=== PATIENT | female | born 1965 | race American Indian/Alaskan Native ===

== ENCOUNTER 2020-12-06 12:53 | Inpatient (IN) | payer OTHER, SELFPAY ==
[2020-12-06] MEDS ORDERED: cefTRIAXone/NS 2 GM/100 ML 2 GM/100 ML BAG IV ONE (13:09)
[2020-12-06] MEDS ORDERED: AZITHROMYCIN/NS 500 MG/250 ML 500 MG/250 ML BAG IV ONE (13:09)
[2020-12-06] MEDS ORDERED: dexAMETHasone 20 MG/5 ML VIAL IV ONE (13:10)
--- NOTE | 2020-12-06 13:53 | XRay Report ---
XR chest routine 2V INDICATION / CLINICAL INFORMATION: fever hypoxia COVID+ COMPARISON: None available. FINDINGS: SUPPORT DEVICES: None. HEART / MEDIASTINUM: No significant abnormality. LUNGS / PLEURA: Patchy bilateral airspace disease in a peripheral predilection. Costophrenic sulci ar e sharp. No pneumothorax. ADDITIONAL FINDINGS: No significant additional findings. IMPRESSION: 1. Bilateral airspace disease concerning for infection. Covid is a consideration. Signer Name: Kali Harrison MD Signed: 12/06/2020 1:49 PM Workstation Name: [id number]
[2020-12-06 14:48] LABS: Basophils % (Auto) 0.1 % (0.0-1.8); Hemoglobin 14.3 gm/dl (10.1-14.3); Lymphocytes # (Auto) 0.5 K/mm3 (1.2-5.4); Lymphocytes % (Auto) 14.6 % (13.4-35.0); Mean Corpuscular HGB Conc 35 % (30-34); Mean Corpuscular Volume 91 fl (79-97); Monocytes # (Auto) 0.5 K/mm3 (0.0-0.8); Monocytes % (Auto) 13.2 % (0.0-7.3); Platelet Count 188 K/mm3 (140-440); Red Blood Count 4.49 M/mm3 (3.65-5.03)
[2020-12-06 15:04] LABS: Alanine Aminotransferase 19 units/L (7-56); Albumin 4.4 g/dL (3.9-5); Blood Urea Nitrogen 11 mg/dL (7-17); Calcium 8.8 mg/dL (8.4-10.2); Hemolysis Index 5
[2020-12-06 15:11] LABS: C-Reactive Protein 6.2 mg/dL (0.00-1.30)
[2020-12-06 15:17] LABS: BUN/Creatinine Ratio 22
--- NOTE | 2020-12-06 15:25 | Emergency Department Report ---
ED Shortness of Breath HPI - General Chief Complaint: Dyspnea/Respdistress Stated Complaint: JEAN Time Seen by Provider: 12/06/20 13:01 Source: patient Mode of arrival: Ambulatory Limitations: No Limitations - History of Present Illness Initial Comments: CC: trouble breathing HPI: This is a 55 yo female with hx of HTN, prediabetes, HLD who presents with trouble breathing, cough, fever, chills, diarrhea, loss of taste/smell for 7 days. REceived one dose of COVID 19 vaccine . +COVID test recently. Worsening shortness of breath prompted her to come to the ED. She works at the [employer]. Complaint: shortness of breath, cough -: Gradual, week(s) (1 week) Severity: severe Consistency: constant Improves With: oxygen Worsens With: exertion Context: other (recent + COVID test) Associated Symptoms: fever, cough - Related Data Allergies Allergy/AdvReac Type Severity Reaction Status Date / Time No Known Allergies Allergy Unverified 12/06/20 12:56 ED Review of Systems ROS: Stated complaint: JEAN Other details as noted in HPI Comment: All other systems reviewed and negative Constitutional: chills, fever, malaise Respiratory: cough, shortness of breath Cardiovascular: denies: chest pain Gastrointestinal: diarrhea ED Past Medical Hx - Past Medical History Previous Medical History?: Yes Hx Hypertension: Yes Hx Diabetes: Yes (prediabetes) Additional medical history: Hyperlipidemia - Surgical History Past Surgical History?: No - Family History Family history: diabetes, hypertension - Social History Smoking Status: Never Smoker Substance Use Type: None ED Physical Exam - General Limitations: No Limitations General appearance: alert, anxious, in distress (Moderate work of breathing speaking full sentences) - Head Head exam: Present: atraumatic, normocephalic - Eye Eye exam: Present: normal appearance - ENT ENT exam: Present: mucous membranes moist - Neck Neck exam: Present: normal inspection, full ROM - Respiratory Respiratory exam: Present: respiratory distress, decreased breath sounds. Absent: wheezes, rales, rhonchi, accessory muscle use - Cardiovascular Cardiovascular Exam: Present: regular rate, normal rhythm, normal heart sounds. Absent: systolic murmur, diastolic murmur, rubs, gallop - GI/Abdominal GI/Abdominal exam: Present: soft, normal bowel sounds. Absent: distended, tenderness, guarding, rebound - Extremities Exam Extremities exam: Present: normal inspection - Neurological Exam Neurological exam: Present: alert, oriented X3 - Psychiatric Psychiatric exam: Present: normal affect, normal mood - Skin Skin exam: Present: warm, dry, intact, normal color. Absent: rash ED Course Vital Signs 12/06/20 12/06/20 12:58 15:24 Temperature 98.5 F Pulse Rate 96 H Respiratory 24 Rate Blood Pressure 139/84 [Right] O2 Sat by Pulse 84 89 Oximetry ED Medical Decision Making - Lab Data Result diagrams: 12/06/20 14:18 12/06/20 14:18 - Radiology Data Radiology results: report reviewed Patient Name: ILEANA SCHROEDER Gender: Female Date of : 1965 Referring Provider: TRISTA FERRER Organization: [facility] Accession Number: [id number] Requested Date: December 06, 2020 13:09 Report Status: Final Requested Procedure: 1 Procedure Description: XR chest routine 2V Modality: XR Findings Reporting MD: Kali Harrison Dictation Time: December 06, 2020 12:49 Radio Installer Automobile: Not available Food Safety Officer Date: XR chest routine 2V INDICATION / CLINICAL INFORMATION: fever hypoxia COVID+ COMPARISON: None available. FINDINGS: SUPPORT DEVICES: None. HEART / MEDIASTINUM: No significant abnormality. LUNGS / PLEURA: Patchy bilateral airspace disease in a peripheral predilection. Costophrenic sulci are sharp. No pneumothorax. ADDITIONAL FINDINGS: No significant additional findings. IMPRESSION: 1. Bilateral airspace disease concerning for infection. Covid is a consideration. Signer Name: Kali Harrison MD Signed: 12/06/2020 12:49 PM Workstation Name: [id number] - Medical Decision Making Acute respiratory failure due to COVID-19, multifocal pneumonia: IV azithromycin IV ceftriaxone initiated emergency department for presumed secondary or primary bacterial infection. IV dexamethasone mention emergency department for s upportive care Covid markers are elevated including ferritin LDH CRP D-dimer chemistry notable for mild hypokalemia Patient mated to the hospital service on nasal cannula Critical care attestation.: If time is entered above; I have spent that time in minutes in the direct care of this critically ill patient, excluding procedure time. ED Disposition Clinical Impression: Acute respiratory failure with hypoxia, Acute respiratory failure due to COVID- 19, Multifocal pneumonia Disposition: 09 ADMITTED INPATIENT Is pt being admited?: Yes Does the pt Need Aspirin: No Condition: Fair Instructions: Bacterial Pneumonia (ED)
--- NOTE | 2020-12-06 17:11 | History and Physical Report ---
History of Present Illness Date of examination: 12/06/20 Date of admission: 12/06/20 15:25 Chief complaint: Fever cough and chills for 7 days History of present illness: 55-year-old female with history of hypertension, borderline diabetes and hyperlipidemia comes in with fever chills and cough for 1 week and difficulty breathing. Patient received 1 dose of Covid vaccine on November 27. Worsening shortness of breath over the last 1 week. [place] Exposure to Covid virus present. Also patient has loss of taste and smell. For the last 7 days. - Past Medical History Previous Medical History?: Yes --Hypertension: Yes --Diabetes: Yes (prediabetes) --Additional medical history: Hyperlipidemia - Surgical History Past Surgical History?: No - Family History Family history: diabetes, hypertension - Social History Smoking Status: Never Smoker Substance Use Type: None Review of Systems ROS: Constitutional fever cough shortness of breath and loss of taste and smell HEENT no sore throat no post nasal drip no diplopia Neck no neck stiffness no lymph gland enlargement Chest and lungs shortness of breath and cough present CVS no chest pain no diaphoresis no palpitations GI no nausea no vomiting no diarrhea Genitourinary system no dysuria no flank pain Musculoskeletal system no muscle pains no joint pains ORGAN TUNER no syncope no seizures Skin no rash no itching Psychiatric no depression no homicidal or suicidal tendencies Hematologic no lymphedema or bruising Endocrine no polydipsia no polyuria no cold intolerance no heat intolerance Medications and Allergies Allergies Allergy/AdvReac Type Severity Reaction Status Date / Time No Known Allergies Allergy Unverified 12/06/20 12:56 Exam - Constitutional Vitals: Temp Pulse Resp BP Pulse Ox 98.5 F 96 H 24 139/84 89 12/06/20 12:58 12/06/20 12:58 12/06/20 12:58 12/06/20 12:58 12/06/20 15:24 General appearance: Present: mild distress, well-nourished - EENT Eyes: Present: PERRL ENT: hearing intact, clear oral mucosa - Neck Neck: Present: supple, normal ROM - Respiratory Respiratory effort: normal Respiratory: bilateral: CTA, rhonchi (Scattered) - Cardiovascular Heart rate: 78 Rhythm: regular Heart Sounds: Present: S1 & S2. Absent: rub, click - Extremities Extremities: pulses symmetrical, No edema Peripheral Pulses: within normal limits - Abdominal General gastrointestinal: Present: soft, non-tender, non-distended, normal bowel sounds Female genitourinary: Present: normal - Integumentary Integumentary: Present: clear, warm, dry - Musculoskeletal Musculoskeletal: gait normal, strength equal bilaterally - Psychiatric Psychiatric: appropriate mood/affect, intact judgment & insight - Neurologic Neurologic: CNII-XII intact, moves all extremities HEART Score - HEART Score Troponin: Troponin T < 0.010 ng/mL (0.00-0.029) 12/06/20 14:18 Results - Labs CBC & Chem 7: 12/07/20 05:36 12/06/20 14:18 Labs: Laboratory Last Values WBC 3.6 K/mm3 (4.5-11.0) L 12/06/20 14:18 RBC 4.49 M/mm3 (3.65-5.03) 12/06/20 14:18 Hgb 14.3 gm/dl (10.1-14.3) 12/06/20 14:18 Hct 41.0 % (30.3-42.9) 12/06/20 14:18 MCV 91 fl (79-97) 12/06/20 14:18 MCH 32 pg (28-32) 12/06/20 14:18 MCHC 35 % (30-34) H 12/06/20 14:18 RDW 13.0 % (13.2-15.2) L 12/06/20 14:18 Plt Count 188 K/mm3 (140-440) 12/06/20 14:18 Lymph % (Auto) 14.6 % (13.4-35.0) 12/06/20 14:18 Hendry % (Auto) 13.2 % (0.0-7.3) H 12/06/20 14:18 Eos % (Auto) 0.0 % (0.0-4.3) 12/06/20 14:18 Baso % (Auto) 0.1 % (0.0-1.8) 12/06/20 14:18 Lymph # (Auto) 0.5 K/mm3 (1.2-5.4) L 12/06/20 14:18 Hendry # (Auto) 0.5 K/mm3 (0.0-0.8) 12/06/20 14:18 Eos # (Auto) 0.0 K/mm3 (0.0-0.4) 12/06/20 14:18 Baso # (Auto) 0.0 K/mm3 (0.0-0.1) 12/06/20 14:18 Seg Neutrophils % 72.1 % (40.0-70.0) H 12/06/20 14:18 Seg Neutrophils # 2.6 K/mm3 (1.8-7.7) 12/06/20 14:18 D-Dimer 343.36 ng/mlDDU (0-234) H 12/06/20 14:18 Sodium 134 mmol/L (137-145) L 12/06/20 14:18 Potassium 3.1 mmol/L (3.6-5.0) L 12/06/20 14:18 Chloride 92.6 mmol/L (98-107) L 12/06/20 14:18 Carbon Dioxide 24 mmol/L (22-30) 12/06/20 14:18 Anion Gap 21 mmol/L 12/06/20 14:18 BUN 11 mg/dL (7-17) 12/06/20 14:18 Creatinine 0.5 mg/dL (0.6-1.2) L 12/06/20 14:18 Estimated GFR > 60 ml/min 12/06/20 14:18 BUN/Creatinine Ratio 22 % 12/06/20 14:18 Glucose 120 mg/dL (65-100) H 12/06/20 14:18 Glucose 122 mg/dL (65-100) H 12/06/20 14:18 Lactic Acid 1.30 mmol/L (0.7-2.0) 12/06/20 16:14 Calcium 8.8 mg/dL (8.4-10.2) 12/06/20 14:18 Ferritin 767.8 ng/mL (10.0-200.0) H 12/06/20 14:18 Total Bilirubin 0.50 mg/dL (0.1-1.2) 12/06/20 14:18 AST 31 units/L (5-40) 12/06/20 14:18 ALT 19 units/L (7-56) 12/06/20 14:18 Alkaline Phosphatase 99 units/L (35-129) 12/06/20 14:18 Lactate Dehydrogenase 373 units/L (91-180) H 12/06/20 14:18 Troponin T < 0.010 ng/mL (0.00-0.029) 12/06/20 14:18 C-Reactive Protein 6.20 mg/dL (0.00-1.30) H 12/06/20 14:18 Total Protein 7.7 g/dL (6.3-8.2) 12/06/20 14:18 Albumin 4.4 g/dL (3.9-5) 12/06/20 14:18 Albumin/Globulin Ratio 1.3 % 12/06/20 14:18 Procalcitonin < 0.05 ng/mL (<0.15) 12/06/20 14:18 Short CBC 12/06/20 12/07/20 Range/Units 14:18 05:36 WBC 3.6 L 2.4 L (4.5-11.0) K/mm3 Hgb 14.3 15.0 H (10.1-14.3) gm/dl Hct 41.0 42.3 (30.3-42.9) % Plt Count 188 219 (140-440) K/mm3 BMP 12/06/20 12/06/20 14:18 14:18 Sodium 134 L Potassium 3.1 L Chloride 92.6 L Carbon Dioxide 24 BUN 11 Creatinine 0.5 L Glucose 122 H 120 H Calcium 8.8 Cardiac Enzymes 12/06/20 Range/Units 14:18 Troponin T < 0.010 (0.00-0.029) ng/mL Liver Function 12/06/20 Range/Units 14:18 Total Bilirubin 0.50 (0.1-1.2) mg/dL AST 31 (5-40) units/L ALT 19 (7-56) units/L Alkaline Phosphatase 99 (35-129) units/L Albumin 4.4 (3.9-5) g/dL Microbiology: Microbiology 12/06/20 14:18 Peripheral/Venous Blood Culture - Preliminary Culture in Progress 12/06/20 14:18 Peripheral/Venous Blood Culture - Preliminary Culture in Progress - Imaging and Cardiology Chest x-ray: report reviewed Imaging and Cardiology: Chest x-ray Bilateral airspace disease concerning for infection Covid is a consideration Assessment and Plan Advance Directives: Yes (Full code) VTE prophylaxis?: Chemical Plan of care discussed with patient/family: Yes - Patient Problems (1) Acute respiratory failure with hypoxia Current Visit: Yes Status: Acute Plan to address problem: Continue oxygen supplementation and keep oxygen saturation levels above 92 Possible Covid pneumonia IV Decadron initiated Respiratory assessment and treatment ID consult (2) SIRS (systemic inflammatory response syndrome) Current Visit: Yes Status: Acute Plan to address problem: All inflammatory markers are elevated including D-dimer which is 343 and CRP is 6.2 and ferritin is 767 consistent with systemic inflammatory response syndrome. (3) Multifocal pneumonia Current Visit: Yes Status: Acute Plan to address problem: Patient initiated on IV antibiotics including ceftriaxone and Zithromax for possible community-acquired pneumonia Procalcitonin is normal We will defer to ID regarding discontinuing antibiotics (4) Pneumonia due to COVID-19 virus Current Visit: Yes Status: Acute Plan to address problem: Patient initiated on IV Decadron Will defer to ID regarding remdesivir Coronavirus PCR pending (5) Hypokalemia Current Visit: Yes Status: Acute Plan to address problem: Supplemented (6) Hyponatremia Current Visit: Yes Status: Acute Plan to address problem: IV fluids in the form of normal saline for 12 hours Recheck sodium level (7) Borderline diabetes Current Visit: Yes Status: Chronic Plan to address problem: Check hemoglobin A1c and coverage Initiate Metformin if necessary (8) Hypertension Current Visit: Yes Status: Chronic Qualifiers: Hypertension type: primary hypertension Qualified Code(s): I10 - Essential (primary) hypertension Plan to address problem: Continue antihypertensives and adjust medications (9) DVT prophylaxis Current Visit: Yes Status: Acute Plan to address problem: On anticoagulation and GI prophylaxis
[2020-12-06] MEDS ORDERED: ACETAMINOPHEN 325 MG TAB PO PRN (17:12)
[2020-12-06] MEDS ORDERED: ONDANSETRON 4 MG/2 ML INJ IV PRN (17:12)
[2020-12-06] MEDS ORDERED: METOCLOPRAMIDE 10 MG/2 ML INJ IV PRN (17:13)
[2020-12-06] MEDS ORDERED: HYDROmorphone 1 MG/1 ML INJ IV PRN (17:13)
[2020-12-06] MEDS ORDERED: oxyCODONE /ACETAMINOPHEN 5-325MG TAB PO PRN (17:13)
[2020-12-06] MEDS ORDERED: SODIUM CHLORIDE 0.9% 1000 ML 1,000 ML IV SCH (17:15)
[2020-12-06] MEDS: FAMOTIDINE 20 MG TAB PO SCH (23:15)
[2020-12-07 06:17] LABS: Hematocrit 42.3 % (30.3-42.9); Mean Corpuscular HGB Conc 35 % (30-34); Mean Corpuscular Volume 91 fl (79-97); Platelet Count 219 K/mm3 (140-440); Red Blood Count 4.65 M/mm3 (3.65-5.03)
[2020-12-07 06:55] LABS: Alanine Aminotransferase 19 units/L (7-56); Albumin 4.3 g/dL (3.9-5); Blood Urea Nitrogen 13 mg/dL (7-17); Calcium 9.6 mg/dL (8.4-10.2); Hemolysis Index 0
[2020-12-07 06:56] LABS: BUN/Creatinine Ratio 26
[2020-12-07] MEDS ORDERED: SODIUM PHOSPHATE 30 MMOL in SODIUM CHLORIDE 0.9% 500 ML 250 ML IV PRN (07:16)
[2020-12-07] MEDS ORDERED: MAGNESIUM SULFATE 2 GM/50 ML BAG IV PRN (07:16)
--- NOTE | 2020-12-07 07:25 | Progress Note ---
Assessment and Plan Assessment and plan: (1) Acute respiratory failure with hypoxia Current Visit: Yes Status: Acute Plan to address problem: Continue oxygen supplementation and keep oxygen saturation levels above 92 Possible Covid pneumonia IV Decadron initiated Respiratory assessment and treatment ID consult (2) SIRS (systemic inflammatory response syndrome) Current Visit: Yes Status: Acute Plan to address problem: All inflammatory markers are elevated including D-dimer which is 343 and CRP is 6.2 and ferritin is 767 consistent with systemic inflammatory response syndrome. (3) Multifocal pneumonia Current Visit: Yes Status: Acute Plan to address problem: Patient initiated on IV antibiotics including ceftriaxone and Zithromax for possible community-acquired pneumonia Procalcitonin is normal We will defer to ID regarding discontinuing antibiotics (4) Pneumonia due to COVID-19 virus Current Visit: Yes Status: Acute Plan to address problem: Patient initiated on IV Decadron Will defer to ID regarding remdesivir Coronavirus PCR pending (5) Hypokalemia Current Visit: Yes Status: Acute Plan to address problem: Supplemented (6) Hyponatremia Current Visit: Yes Status: Acute Plan to address problem: IV fluids in the form of normal saline for 12 hours Recheck sodium level (7) 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 Patient is on dexamethasone, will add remdesivir once we get the Covid test result positive. Procalcitonin level is normal and I discontinued antibiotics. Hypokalemia repleted according to electrolyte replacement protocol. Will monitor blood pressure. History Interval history: Patient was seen and evaluated this morning Patient was on 3 L of oxygen Patient states she is feeling better today Hospitalist Physical - Physical exam Narrative exam: Not in cardiopulmonary distress. The patient is obese. Vital signs as documented. Head exam is unremarkable. No scleral icterus . Neck is without jugular venous distension, thyromegaly, or carotid bruits. Lungs are clear to auscultation. Cardiac exam reveals regular rate and Rhythm. Abdominal exam reveals normal bowel sounds, nontender, no organomegaly. Extremities are nonedematous and both femoral and pedal pulses are normal. SCHEDULING MANAGER: Alert and oriented 3. No focal weakness. - Constitutional Vitals: Temp Pulse Resp BP Pulse Ox 98.6 F 83 16 150/97 89 12/07/20 03:44 12/07/20 03:44 12/07/20 03:44 12/07/20 03:44 12/07/20 03:44 General appearance: Present: mild distress, well-nourished HEART Score - HEART Score Troponin: Troponin T < 0.010 ng/mL (0.00-0.029) 12/06/20 14:18 Results - Labs CBC & Chem 7: 12/07/20 05:36 12/07/20 05:36 Labs: Laboratory Last Values WBC 2.4 K/mm3 (4.5-11.0) L 12/07/20 05:36 RBC 4.65 M/mm3 (3.65-5.03) 12/07/20 05:36 Hgb 15.0 gm/dl (10.1-14.3) H 12/07/20 05:36 Hct 42.3 % (30.3-42.9) 12/07/20 05:36 MCV 91 fl (79-97) 12/07/20 05:36 MCH 32 pg (28-32) 12/07/20 05:36 MCHC 35 % (30-34) H 12/07/20 05:36 RDW 13.0 % (13.2-15.2) L 12/07/20 05:36 Plt Count 219 K/mm3 (140-440) 12/07/20 05:36 Lymph % (Auto) 14.6 % (13.4-35.0) 12/06/20 14:18 Bonner % (Auto) Taxi Driver Supervisor 12/07/20 05:36 Eos % (Auto) 0.0 % (0.0-4.3) 12/06/20 14:18 Baso % (Auto) 0.1 % (0.0-1.8) 12/06/20 14:18 Lymph # (Auto) 0.5 K/mm3 (1.2-5.4) L 12/06/20 14:18 Bonner # (Auto) 0.5 K/mm3 (0.0-0.8) 12/06/20 14:18 Eos # (Auto) 0.0 K/mm3 (0.0-0.4) 12/06/20 14:18 Baso # (Auto) 0.0 K/mm3 (0.0-0.1) 12/06/20 14:18 Seg Neutrophils % 72.1 % (40.0-70.0) H 12/06/20 14:18 Seg Neutrophils # 2.6 K/mm3 (1.8-7.7) 12/06/20 14:18 D-Dimer 343.36 ng/mlDDU (0-234) H 12/06/20 14:18 Sodium 137 mmol/L (137-145) 12/07/20 05:36 Potassium 3.0 mmol/L (3.6-5.0) L 12/07/20 05:36 Chloride 93.2 mmol/L (98-107) L 12/07/20 05:36 Carbon Dioxide 31 mmol/L (22-30) H D 12/07/20 05:36 Anion Gap 16 mmol/L 12/07/20 05:36 BUN 13 mg/dL (7-17) 12/07/20 05:36 Creatinine 0.5 mg/dL (0.6-1.2) L 12/07/20 05:36 Estimated GFR > 60 ml/min 12/07/20 05:36 BUN/Creatinine Ratio 26 % 12/07/20 05:36 Glucose 130 mg/dL (65-100) H 12/07/20 05:36 Hemoglobin A1c 6.1 % (4-6) H 12/07/20 05:36 Lactic Acid 1.30 mmol/L (0.7-2.0) 12/06/20 16:14 Calcium 9.6 mg/dL (8.4-10.2) 12/07/20 05:36 Ferritin 767.8 ng/mL (10.0-200.0) H 12/06/20 14:18 Total Bilirubin 0.50 mg/dL (0.1-1.2) 12/07/20 05:36 AST 33 units/L (5-40) 12/07/20 05:36 ALT 19 units/L (7-56) 12/07/20 05:36 Alkaline Phosphatase 102 units/L (35-129) 12/07/20 05:36 Lactate Dehydrogenase 373 units/L (91-180) H 12/06/20 14:18 Troponin T < 0.010 ng/mL (0.00-0.029) 12/06/20 14:18 C-Reactive Protein 6.20 mg/dL (0.00-1.30) H 12/06/20 14:18 Total Protein 8.5 g/dL (6.3-8.2) H 12/07/20 05:36 Albumin 4.3 g/dL (3.9-5) 12/07/20 05:36 Albumin/Globulin Ratio 1.0 % 12/07/20 05:36 Procalcitonin < 0.05 ng/mL (<0.15) 12/06/20 14:18 Microbiology: Microbiology 12/06/20 14:18 Peripheral/Venous Blood Culture - Preliminary Culture in Progress 12/06/20 14:18 Peripheral/Venous Blood Culture - Preliminary Culture in Progress Wilkins/IV: Voiding Method Toilet Active Medications - Current Medications Current Medications: Generic Name Dose Route Start Last Admin Trade Name Freq PRN Reason Stop Dose Admin Acetaminophen 650 mg 12/06/20 17:12 Acetaminophen 325 Mg Tab PO Q4H PRN Pain MILD(1-3)/Fever >100.5/[place] Dexamethasone 8 mg 12/07/20 10:00 Dexamethasone 4 Mg/Ml Vial IV Q24H BRONWYN Enoxaparin Sodium 40 mg 12/06/20 18:00 Enoxaparin 40 Mg/0.4 Ml Inj SUB-Q QDAY BRONWYN Famotidine 20 mg 12/06/20 22:00 12/06/20 23:15 Famotidine 20 Mg Tab PO 20 mg BID BRONWYN Administration Hydromorphone HCl 0.5 mg 12/06/20 17:13 Hydromorphone 1 Mg/1 Ml Inj IV Q3H PRN Pain , Severe (7-10) Sodium Chloride 1,000 mls @ 75 mls/hr 12/06/20 17:15 Nacl 0.9% 1000 Ml IV 12/07/20 08:00 DIRECT BRONWYN Magnesium Sulfate 2 gm in 50 mls @ 25 mls/hr 12/07/20 07:16 Magnesium Sulfate 2gm/50ml IV Q2H PRN Magnesium level 1.5-1.7 mg/dL Sodium Phosphate 30 mmol/ 260 mls @ 40 mls/hr 12/07/20 07:16 Sodium Chloride IV Q6H PRN Phosphorous level < 1.2 mg/dL Metoclopramide HCl 10 mg 12/06/20 17:13 Metoclopramide 10 Mg/2 Ml Inj IV Q6H PRN Nausea And Vomiting Ondansetron HCl 4 mg 12/06/20 17:12 Ondansetron 4 Mg/2 Ml Inj IV Q8H PRN Nausea And Vomiting Oxycodone/Acetaminophen 1 tab 12/06/20 17:13 Oxycodone /Acetaminophen 5-325mg Tab PO Q6H PRN Pain, Moderate (4-6) Potassium Chloride 20 meq 12/07/20 07:16 Potassium Chloride Er 20 Meq Tab PO Q2H PRN Potassium 3-3.5 mEq/L Sodium Chloride 10 ml 12/06/20 22:00 12/06/20 22:54 Sodium Chloride 0.9% 10 Ml Flush Syringe IV 10 ml BID BRONWYN Administration Sodium Chloride 10 ml 12/06/20 17:12 Sodium Chloride 0.9% 10 Ml Flush Syringe IV PRN PRN LINE FLUSH
[2020-12-07 09:59] LABS: Total Cells Counted 100
[2020-12-07] MEDS ORDERED: cefTRIAXone/NS 2 GM/100 ML 2 GM/100 ML BAG IV SCH (10:00)
[2020-12-07 10:01] LABS: Anisocytosis 2+; Ovalocytes 1+
[2020-12-07 10:02] LABS: Hypochromasia 2+; Large Platelets Few; Platelet Estimate Cons
[2020-12-07] MEDS: POTASSIUM CHLORIDE ER 20 MEQ TAB PO SCH (10:51)
[2020-12-07] MEDS: dexAMETHasone 4 MG/ML VIAL IV SCH (10:51)
[2020-12-07] MEDS: FAMOTIDINE 20 MG TAB PO SCH ×2 (10:54→21:52)
[2020-12-07] MEDS: ENOXAPARIN 40 MG/0.4 ML INJ SUB-Q SCH (10:55)
[2020-12-07] MEDS: INSULIN LISPRO 100 UNIT/ML SUB-Q SCH ×3 (11:25→23:58)
[2020-12-07] MEDS ORDERED: POTASSIUM CHLORIDE ER 20 MEQ TAB PO PRN (12:00)
--- NOTE | 2020-12-07 13:12 | Consultation ---
History of Present Illness - Reason for Consult Consult date: 12/07/20 COVID PUI Requesting physician: MATTHEW MONTALVO - History of Present Illness The patient is a 55-year-old female with diabetes, hypertension, hyperlipidemia admitted as COVID-19 PUI. Symptomatic for 7 days. Status post 1 dose of COVID- 19 vaccination. Labs revealed leukopenia, D-dimer 343, CRP 6.2, ferritin 767, LDH 373, procalcitonin 0.05 Review of Systems: reviewed in the chart, unable to obtain, minimize risk of transmission Medications and Allergies Allergies Allergy/AdvReac Type Severity Reaction Status Date / Time No Known Allergies Allergy Unverified 12/06/20 12:56 Active Meds: Active Medications Acetaminophen (Acetaminophen 325 Mg Tab) 650 mg PO Q4H PRN PRN Reason: Pain MILD(1-3)/Fever >100.5/[place] Last Admin: 12/07/20 08:31 Dose: 650 mg Documented by: Dexamethasone (Dexamethasone 4 Mg/Ml Vial) 8 mg IV Q24H BRONWYN Stop: 12/15/20 10:01 Last Admin: 12/07/20 10:51 Dose: 8 mg Documented by: Enoxaparin Sodium (Enoxaparin 40 Mg/0.4 Ml Inj) 40 mg SUB-Q QDAY [facility] Last Admin: 12/07/20 10:55 Dose: 40 mg Documented by: Famotidine (Famotidine 20 Mg Tab) 20 mg PO BID BRONWYN Last Admin: 12/07/20 10:54 Dose: 20 mg Documented by: Hydromorphone HCl (Hydromorphone 1 Mg/1 Ml Inj) 0.5 mg IV Q3H PRN PRN Reason: Pain , Severe (7-10) Magnesium Sulfate (Magnesium Sulfate 2gm/50ml) 2 gm in 50 mls @ 25 mls/hr IV Q2H PRN PRN Reason: Magnesium level 1.5-1.7 mg/dL Sodium Phosphate 30 mmol/ (Sodium Chloride) 260 mls @ 40 mls/hr IV Q6H PRN PRN Reason: Phosphorous level < 1.2 mg/dL Insulin Human Lispro (Insulin Lispro 100 Unit/Ml) 0 unit SUB-Q ACHS BRONWYN; P rotocol Metoclopramide HCl (Metoclopramide 10 Mg/2 Ml Inj) 10 mg IV Q6H PRN PRN Reason: Nausea And Vomiting Ondansetron HCl (Ondansetron 4 Mg/2 Ml Inj) 4 mg IV Q8H PRN PRN Reason: Nausea And Vomiting Oxycodone/Acetaminophen (Oxycodone /Acetaminophen 5-325mg Tab) 1 tab PO Q6H PRN PRN Reason: Pain, Moderate (4-6) Potassium Chloride (Potassium Chloride Er 20 Meq Tab) 20 meq PO Q2H PRN PRN Reason: Potassium 3-3.5 mEq/L Sodium Chloride (Sodium Chloride 0.9% 10 Ml Flush Syringe) 10 ml IV BID BRONWYN Last Admin: 12/07/20 10:54 Dose: 10 ml Documented by: Sodium Chloride (Sodium Chloride 0.9% 10 Ml Flush Syringe) 10 ml IV PRN PRN PRN Reason: LINE FLUSH Physical Examination - Physical Exam Narrative exam: Physical Exam (reviewed in chart to minimize risk of transmission) Constitutional: deferred Head, Ears, Nose: deferred Eyes: deferred Neck: deferred Oral: deferred Cardiovascular: deferred Respiratory: deferred GI: deferred Musculoskeletal: deferred Skin: deferred Hem/Lymphatic: deferred Psych: deferred Neurological: deferred - Constitutional Vitals: Vital Signs Temp Pulse Resp BP Pulse Ox 98.6 F 83 16 150/97 93 12/07/20 03:44 12/07/20 03:44 12/07/20 03:44 12/07/20 03:44 12/07/20 10:00 Temperature -Last 24 Hours Temperature 98.6 F Results - Labs CBC & Chem 7: 12/07/20 05:36 12/07/20 05:36 Labs: Abnormal lab results 12/06/20 12/06/20 12/06/20 Range/Units 14:18 14:18 14:18 WBC 3.6 L (4.5-11.0) K/mm3 Hgb (10.1-14.3) gm/dl MCHC 35 H (30-34) % RDW 13.0 L (13.2-15.2) % [place] % (Auto) 13.2 H (0.0-7.3) % Lymph # (Auto) 0.5 L (1.2-5.4) K/mm3 Seg Neutrophils % 72.1 H (40.0-70.0) % Seg Neuts % (Manual) (40.0-70.0) % Monocytes % (Manual) (0.0-7.3) % Seg Neutrophils # Man (1.8-7.7) K/mm3 Lymphocytes # (Manual) (1.2-5.4) K/mm3 D-Dimer 343.36 H (0-234) ng/mlDDU Sodium 134 L (137-145) mmol/L Potassium 3.1 L (3.6-5.0) mmol/L Chloride 92.6 L (98-107) mmol/L Carbon Dioxide (22-30) mmol/L Creatinine 0.5 L (0.6-1.2) mg/dL Glucose 122 H (65-100) mg/dL POC Glucose (70-105) mg/dL Hemoglobin A1c (4-6) % Ferritin (10.0-200.0) ng/mL Lactate Dehydrogenase (91-180) units/L C-Reactive Protein (0.00-1.30) mg/dL Total Protein (6.3-8.2) g/dL 12/06/20 12/06/20 12/07/20 Range/Units 14:18 14:18 05:36 WBC 2.4 L (4.5-11.0) K/mm3 Hgb 15.0 H (10.1-14.3) gm/dl MCHC 35 H (30-34) % RDW 13.0 L (13.2-15.2) % [place]assen % (Auto) (0.0-7.3) % Lymph # (Auto) (1.2-5.4) K/mm3 Seg Neutrophils % (40.0-70.0) % Seg Neuts % (Manual) 72.0 H (40.0-70.0) % Monocytes % (Manual) 12.0 H (0.0-7.3) % Seg Neutrophils # Man 1.7 L (1.8-7.7) K/mm3 Lymphocytes # (Manual) 0.4 L (1.2-5.4) K/mm3 D-Dimer (0-234) ng/mlDDU Sodium (137-145) mmol/L Potassium (3.6-5.0) mmol/L Chloride (98-107) mmol/L Carbon Dioxide (22-30) mmol/L Creatinine (0.6-1.2) mg/dL Glucose 120 H (65-100) mg/dL POC Glucose (70-105) mg/dL Hemoglobin A1c (4-6) % Ferritin 767.8 H (10.0-200.0) ng/mL Lactate Dehydrogenase 373 H (91-180) units/L C-Reactive Protein 6.20 H (0.00-1.30) mg/dL Total Protein (6.3-8.2) g/dL 12/07/20 12/07/20 12/07/20 Range/Units 05:36 05:36 10:48 WBC (4.5-11.0) K/mm3 Hgb (10.1-14.3) gm/dl MCHC (30-34) % RDW (13.2-15.2) % Lassen % (Auto) (0.0-7.3) % Lymph # (Auto) (1.2-5.4) K/mm3 Seg Neutrophils % (40.0-70.0) % Seg Neuts % (Manual) (40.0-70.0) % Monocytes % (Manual) (0.0-7.3) % Seg Neutrophils # Man (1.8-7.7) K/mm3 Lymphocytes # (Manual) (1.2-5.4) K/mm3 D-Dimer (0-234) ng/mlDDU Sodium (137-145) mmol/L Potassium 3.0 L (3.6-5.0) mmol/L Chloride 93.2 L (98-107) mmol/L Carbon Dioxide 31 H D (22-30) mmol/L Creatinine 0.5 L (0.6-1.2) mg/dL Glucose 130 H (65-100) mg/dL POC Glucose 137 H (70-105) mg/dL Hemoglobin A1c 6.1 H (4-6) % Ferritin (10.0-200.0) ng/mL Lactate Dehydrogenase (91-180) units/L C-Reactive Protein (0.00-1.30) mg/dL Total Protein 8.5 H (6.3-8.2) g/dL - Imaging and Cardiology Chest x-ray: report reviewed, image reviewed (b/l PNA) Assessment and Plan Cultures: SARS CoV2 PCR: Pending 12/06/2020 blood culture: In process A/P: 55/M with borderline DM, HTN, HLD with: #COVID-19 PUI #Bilateral pneumonia #Acute hypoxic respiratory failure: Hypoxic on room air #Leukopenia: Likely from viral illness Recs: -High suspicion for COVID-19, orders placed for remdesivir, d/c if COVID negat paul -continue IV/PO Dexamethasone x 10 days -prophylactic anticoagulation based on d-dimer per hospital protocol -procalcitonin is low, abx not needed -trend ferritin, d-dimer, CRP every 2-3 days Branden Sorensen MD, FACP [facility] O: [phone] F: [phone]
[2020-12-07] MEDS ORDERED: AZITHROMYCIN/NS 500 MG/250 ML 500 MG/250 ML BAG IV SCH (14:00)
[2020-12-07] MEDS ORDERED: LIP THERAPY VASELINE TP PRN (14:44)
[2020-12-07 16:26] LABS: Alanine Aminotransferase 20 units/L (7-56); Blood Urea Nitrogen 15 mg/dL (7-17); Calcium 9.3 mg/dL (8.4-10.2); Hemolysis Index 10
[2020-12-07 16:28] LABS: BUN/Creatinine Ratio 25
[2020-12-07] MEDS ORDERED: REMDESIVIR 200 MG in SODIUM CHLORIDE 0.9% 250ML 250 ML IV ONE (17:00)
[2020-12-07] MEDS: SODIUM CHLORIDE 0.9% 50 ML IVPB IV SCH (17:15)
[2020-12-08] MEDS ORDERED: ALUM-MAG HYDROXIDE-SIMETHICONE 200-200-20MG/5ML ORAL LIQD 30 ML PO PRN (00:39)
--- NOTE | 2020-12-08 07:10 | Progress Note ---
Assessment and Plan Assessment and plan: (1) Acute respiratory failure with hypoxia Current Visit: Yes Status: Acute Plan to address problem: Continue oxygen supplementation and keep oxygen saturation levels above 92 Possible Covid pneumonia IV Decadron initiated Respiratory assessment and treatment ID consult (2) SIRS (systemic inflammatory response syndrome) Current Visit: Yes Status: Acute Plan to address problem: All inflammatory markers are elevated including D-dimer which is 343 and CRP is 6.2 and ferritin is 767 consistent with systemic inflammatory response syndrome. (3) Multifocal pneumonia Current Visit: Yes Status: Acute Plan to address problem: Patient initiated on IV antibiotics including ceftriaxone and Zithromax for possible community-acquired pneumonia Procalcitonin is normal We will defer to ID regarding discontinuing antibiotics (4) Pneumonia due to COVID-19 virus Current Visit: Yes Status: Acute Plan to address problem: Patient initiated on IV Decadron Will defer to ID regarding remdesivir Coronavirus PCR pending (5) Hypokalemia Current Visit: Yes Status: Acute Plan to address problem: Supplemented (6) Hyponatremia Current Visit: Yes Status: Acute Plan to address problem: IV fluids in the form of normal saline for 12 hours Recheck sodium level (7) 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 Patient is on dexamethasone, will add remdesivir once we get the Covid test result positive. Procalcitonin level is normal and I discontinued antibiotics. Hypokalemia repleted according to electrolyte replacement protocol. Will monitor blood pressure. 12/08 -Patient is on 10 L of oxygen, wean off oxygen as tolerated -Covid test was positive and started on remdesivir and Decadron. ID is following. Will consult pulmonary. -Blood sugars in target, continue sliding scale insulin History Interval history: Patient was seen and evaluated this morning Patient was on 10 L of oxygen Patient did not have any new complaints Hospitalist Physical - Physical exam Narrative exam: Not in cardiopulmonary distress. The patient is obese. Vital signs as documented. Head exam is unremarkable. No scleral icterus . Neck is without jugular venous distension, thyromegaly, or carotid bruits. Lungs decreased air entry. Cardiac exam reveals regular rate and Rhythm. Abdominal exam reveals normal bowel sounds, nontender, no organomegaly. Extremities are nonedematous and both femoral and pedal pulses are normal. ACCOUNTS RECEIVABLE COORDINATOR: Alert and oriented 3. No focal weakness. - Constitutional Vitals: Temp Pulse Resp BP Pulse Ox 97.9 F 78 22 143/93 91 12/08/20 05:18 12/08/20 05:18 12/08/20 05:18 12/08/20 05:18 12/08/20 05:18 General appearance: Present: mild distress, well-nourished HEART Score - HEART Score Troponin: Troponin T < 0.010 ng/mL (0.00-0.029) 12/06/20 14:18 Results - Labs CBC & Chem 7: 12/07/20 05:36 12/08/20 06:49 Labs: Laboratory Last Values WBC 2.4 K/mm3 (4.5-11.0) L 12/07/20 05:36 RBC 4.65 M/mm3 (3.65-5.03) 12/07/20 05:36 Hgb 15.0 gm/dl (10.1-14.3) H 12/07/20 05:36 Hct 42.3 % (30.3-42.9) 12/07/20 05:36 MCV 91 fl (79-97) 12/07/20 05:36 MCH 32 pg (28-32) 12/07/20 05:36 MCHC 35 % (30-34) H 12/07/20 05:36 RDW 13.0 % (13.2-15.2) L 12/07/20 05:36 Plt Count 219 K/mm3 (140-440) 12/07/20 05:36 Lymph % (Auto) 14.6 % (13.4-35.0) 12/06/20 14:18 [place] % (Auto) Filling Operator 12/07/20 05:36 Eos % (Auto) 0.0 % (0.0-4.3) 12/06/20 14:18 Baso % (Auto) 0.1 % (0.0-1.8) 12/06/20 14:18 Lymph # (Auto) 0.5 K/mm3 (1.2-5.4) L 12/06/20 14:18 [place] # (Auto) 0.5 K/mm3 (0.0-0.8) 12/06/20 14:18 Eos # (Auto) 0.0 K/mm3 (0.0-0.4) 12/06/20 14:18 Baso # (Auto) 0.0 K/mm3 (0.0-0.1) 12/06/20 14:18 Add Manual Diff Complete 12/07/20 05:36 Total Counted 100 12/07/20 05:36 Seg Neutrophils % 72.1 % (40.0-70.0) H 12/06/20 14:18 Seg Neuts % (Manual) 72.0 % (40.0-70.0) H 12/07/20 05:36 Band Neutrophils % 1.0 % 12/07/20 05:36 Lymphocytes % (Manual) 15.0 % (13.4-35.0) 12/07/20 05:36 Monocytes % (Manual) 12.0 % (0.0-7.3) H 12/07/20 05:36 Nucleated RBC % Not Reportable 12/07/20 05:36 Seg Neutrophils # 2.6 K/mm3 (1.8-7.7) 12/06/20 14:18 Seg Neutrophils # Man 1.7 K/mm3 (1.8-7.7) L 12/07/20 05:36 Band Neutrophils # 0.0 K/mm3 12/07/20 05:36 Lymphocytes # (Manual) 0.4 K/mm3 (1.2-5.4) L 12/07/20 05:36 Abs React Lymphs (Man) 0.0 K/mm3 12/07/20 05:36 Monocytes # (Manual) 0.3 K/mm3 (0.0-0.8) 12/07/20 05:36 Eosinophils # (Manual) 0.0 K/mm3 (0.0-0.4) 12/07/20 05:36 Basophils # (Manual) 0.0 K/mm3 (0.0-0.1) 12/07/20 05:36 Metamyelocytes # 0.0 K/mm3 12/07/20 05:36 Myelocytes # 0.0 K/mm3 12/07/20 05:36 Promyelocytes # 0.0 K/mm3 12/07/20 05:36 Blast Cells # 0.0 K/mm3 12/07/20 05:36 WBC Morphology Not Reportable 12/07/20 05:36 Hypersegmented Neuts Not Reportable 12/07/20 05:36 Hyposegmented Neuts Not Reportable 12/07/20 05:36 Hypogranular Neuts Not Reportable 12/07/20 05:36 Smudge Cells Not Reportable 12/07/20 05:36 Toxic Granulation Not Reportable 12/07/20 05:36 Toxic Vacuolation Not Reportable 12/07/20 05:36 Dohle Bodies Not Reportable 12/07/20 05:36 Pelger-Huet Anomaly Not Reportable 12/07/20 05:36 Tanya Rods Not Reportable 12/07/20 05:36 Platelet Estimate Cons 12/07/20 05:36 Clumped Platelets Not Reportable 12/07/20 05:36 Plt Clumps, EDTA Not Reportable 12/07/20 05:36 Large Platelets Few 12/07/20 05:36 Giant Platelets Not Reportable 12/07/20 05:36 Platelet Satelliting Not Reportable 12/07/20 05:36 Plt Morphology Comment Not Reportable 12/07/20 05:36 RBC Morphology Not Reportable 12/07/20 05:36 Dimorphic RBCs Not Reportable 12/07/20 05:36 Polychromasia Not Reportable 12/07/20 05:36 Hypochromasia 2+ 12/07/20 05:36 Poikilocytosis Not Reportable 12/07/20 05:36 Anisocytosis 2+ 12/07/20 05:36 Microcytosis 1+ 12/07/20 05:36 Macrocytosis Not Reportable 12/07/20 05:36 Spherocytes Not Reportable 12/07/20 05:36 Pappenheimer Bodies Not Reportable 12/07/20 05:36 Sickle Cells Not Reportable 12/07/20 05:36 Target Cells Not Reportable 12/07/20 05:36 Tear Drop Cells Not Reportable 12/07/20 05:36 Ovalocytes 1+ 12/07/20 05:36 Helmet Cells Not Reportable 12/07/20 05:36 Adhikari-Clitherall Bodies Not Reportable 12/07/20 05:36 Walnut Rings Not Reportable 12/07/20 05:36 Abbey Cells Not Reportable 12/07/20 05:36 Bite Cells Not Reportable 12/07/20 05:36 Crenated Cell Not Reportable 12/07/20 05:36 Elliptocytes Not Reportable 12/07/20 05:36 Acanthocytes (Spur) Not Reportable 12/07/20 05:36 Rouleaux Not Reportable 12/07/20 05:36 Hemoglobin C Crystals Not Reportable 12/07/20 05:36 Schistocytes Not Reportable 12/07/20 05:36 Malaria parasites Not Reportable 12/07/20 05:36 Shaun Bodies Not Reportable 12/07/20 05:36 Hem Pathologist Commnt No 12/07/20 05:36 D-Dimer 343.36 ng/mlDDU (0-234) H 12/06/20 14:18 Sodium 137 mmol/L (137-145) 12/07/20 15:08 Potassium 3.4 mmol/L (3.6-5.0) L 12/07/20 15:08 Chloride 95.6 mmol/L (98-107) L 12/07/20 15:08 Carbon Dioxide 25 mmol/L (22-30) 12/07/20 15:08 Anion Gap 20 mmol/L 12/07/20 15:08 BUN 15 mg/dL (7-17) 12/07/20 15:08 Creatinine 0.6 mg/dL (0.6-1.2) 12/07/20 15:08 Estimated GFR > 60 ml/min 12/07/20 15:08 BUN/Creatinine Ratio 25 % 12/07/20 15:08 Glucose 145 mg/dL (65-100) H 12/07/20 15:08 POC Glucose 120 mg/dL (70-105) H 12/07/20 21:13 Hemoglobin A1c 6.1 % (4-6) H 12/07/20 05:36 Lactic Acid 1.30 mmol/L (0.7-2.0) 12/06/20 16:14 Calcium 9.3 mg/dL (8.4-10.2) 12/07/20 15:08 Ferritin 767.8 ng/mL (10.0-200.0) H 12/06/20 14:18 Total Bilirubin 0.40 mg/dL (0.1-1.2) 12/07/20 15:08 AST 31 units/L (5-40) 12/07/20 15:08 ALT 20 units/L (7-56) 12/07/20 15:08 Alkaline Phosphatase 97 units/L (35-129) 12/07/20 15:08 Lactate Dehydrogenase 373 units/L (91-180) H 12/06/20 14:18 Troponin T < 0.010 ng/mL (0.00-0.029) 12/06/20 14:18 C-Reactive Protein 6.20 mg/dL (0.00-1.30) H 12/06/20 14:18 Total Protein 8.3 g/dL (6.3-8.2) H 12/07/20 15:08 Albumin 4.0 g/dL (3.9-5) 12/07/20 15:08 Albumin/Globulin Ratio 0.9 % 12/07/20 15:08 Procalcitonin < 0.05 ng/mL (<0.15) 12/06/20 14:18 Coronavirus (PCR) Positive (Negative) A 12/07/20 Unknown Microbiology: Microbiology 12/06/20 14:18 Peripheral/Venous Blood Culture - Preliminary NO GROWTH AFTER 24 HOURS 12/06/20 14:18 Peripheral/Venous Blood Culture - Preliminary NO GROWTH AFTER 24 HOURS Wilkins/IV: Voiding Method Toilet Active Medications - Current Medications Current Medications: Generic Name Dose Route Start Last Admin Trade Name Freq PRN Reason Stop Dose Admin Acetaminophen 650 mg 12/06/20 17:12 12/07/20 08:31 Acetaminophen 325 Mg Tab PO 650 mg Q4H PRN Administration Pain MILD(1-3)/Fever >100.5/[place] Al Hydrox/Mg Hydrox/Simethicone 30 ml 12/08/20 00:39 12/08/20 01:16 Alum-Mag Hydroxide-Simethicone [phone]/5ml Oral Liqd 30 Ml PO 30 ml Q4H PRN Administration Indigestion Dexamethasone 8 mg 12/07/20 10:00 12/07/20 10:51 Dexamethasone 4 Mg/Ml Vial IV 12/15/20 10:01 8 mg Q24H BRONWYN Administration Enoxaparin Sodium 40 mg 12/06/20 18:00 12/07/20 10:55 Enoxaparin 40 Mg/0.4 Ml Inj SUB-Q 40 mg QDAY BRONWYN Administration Famotidine 20 mg 12/06/20 22:00 12/07/20 21:52 Famotidine 20 Mg Tab PO 20 mg BID BRONWYN Administration Hydromorphone HCl 0.5 mg 12/06/20 17:13 Hydromorphone 1 Mg/1 Ml Inj IV Q3H PRN Pain , Severe (7-10) Hydrophilic Ointment 1 applic 12/07/20 14:44 Lip Therapy Vaseline TP DIRECT PRN Dry Lips Magnesium Sulfate 2 gm in 50 mls @ 25 mls/hr 12/07/20 07:16 Magnesium Sulfate 2gm/50ml IV Q2H PRN Magnesium level 1.5-1.7 mg/dL Sodium Phosphate 30 mmol/ 260 mls @ 40 mls/hr 12/07/20 07:16 Sodium Chloride IV Q6H PRN Phosphorous level < 1.2 mg/dL REMDESIVIR 100 mg/ Sodium 250 mls @ 500 mls/hr 12/08/20 21:00 Chloride IV 12/11/20 21:29 Q24HR@2100 [facility] Insulin Human Lispro 0 unit 12/07/20 11:30 12/07/20 23:58 Insulin Lispro 100 Unit/Ml SUB-Q Not Given ACHS [facility] Protocol Metoclopramide HCl 10 mg 12/06/20 17:13 Metoclopramide 10 Mg/2 Ml Inj IV Q6H PRN Nausea And Vomiting Ondansetron HCl 4 mg 12/06/20 17:12 Ondansetron 4 Mg/2 Ml Inj IV Q8H PRN Nausea And Vomiting Oxycodone/Acetaminophen 1 tab 12/06/20 17:13 Oxycodone /Acetaminophen 5-325mg Tab PO Q6H PRN Pain, Moderate (4-6) Potassium Chloride 20 meq 12/07/20 12:00 Potassium Chloride Er 20 Meq Tab PO Q2H PRN Potassium 3-3.5 mEq/L Sodium Chloride 10 ml 12/06/20 22:00 12/07/20 21:53 Sodium Chloride 0.9% 10 Ml Flush Syringe IV 10 ml BID BRONWYN Administration Sodium Chloride 10 ml 12/06/20 17:12 Sodium Chloride 0.9% 10 Ml Flush Syringe IV PRN PRN LINE FLUSH Sodium Chloride 50 ml 12/07/20 17:00 12/07/20 17:15 Sodium Chloride 0.9% 50 Ml Ivpb IV 12/11/20 21:01 50 ml Q24HR@2100 BRONWYN Administration Nutrition/Malnutrition Assess - Dietary Evaluation Nutrition/Malnutrition Findings: Nutrition Notes Start: 12/07/20 12:11 Freq: Status: Active Protocol: Document 12/07/20 12:11 GB (Rec: 12/07/20 12:21 GB [id number]) Nutrition Notes Need for Assessment generated from: [email or web address] Initial or Follow up Assessment Current Diagnosis Respiratory Failure Other Pertinent Diagnosis SOB Current Diet consistent carbohydrate Labs/Tests 12/06: K 3, creatinine 0.5, glucose 130 Pertinent Medications Mg Sulfate, KCl, NaCl, Na Phosphate Height 5 ft 10 in Weight 99.79 kg [place] Body Weight (kg) 68.18 BMI 31.5 Intake Prior to Admission Good Weight change and time frame no reported change Weight Status Obese Subjective/Other Information Appetite decrease r/t SOB, reported loss of taste/smell Burn Absent Trauma Absent GI Symptoms None Food Allergy No Skin Integrity/Comment No reported skin complications Minimum of two criteria No #1 Nutrition Diagnosis Predicted suboptimal energy intake Comments: Possible COVID complications Etiology SOB, respiratory Failure As Evidenced by Signs and Symptoms reported decrease in appetite, loss of taste/smell Is patient on ventilator? No Is Patient Ambulatory and/or Out of Bed Yes REE-([facility]-ambulatory/OOB) [ 2175.095 [id number]] Kcal/Kg value to use for calculation 18 Approximate Energy Requirements Using 1796 kcal/Kg Calculation Used for Recommendations Kcal/kg Additional Notes Protein: 0.8-1 g/kg @ 99k -99g Fluids: 1 ml/kcal or per MD Nutrition Intervention Change Diet Order: Continue Nutrition Support: consult for TF if pt progresses to BIpap or has significant weight loss 3% or greater Goal #1 PO intake of meals to maintain 50% or greater during LOS Goal #2 Weight to maintain within +/-3 % current weight during LOS Follow-Up By: 12/12/20 Additional Comments Follow up for TF if needed ( recommend glucerna 1.2). RN to record PO intake of meals monitor bed scale weight every 3 days.
[2020-12-08 08:01] LABS: Alanine Aminotransferase 17 units/L (7-56); BUN/Creatinine Ratio 30; Blood Urea Nitrogen 18 mg/dL (7-17); Calcium 9.2 mg/dL (8.4-10.2); Hemolysis Index 0
[2020-12-08] MEDS: INSULIN LISPRO 100 UNIT/ML SUB-Q SCH ×4 (08:48→22:00)
[2020-12-08] MEDS ORDERED: POTASSIUM CHLORIDE ER 20 MEQ TAB PO NR (11:07)
[2020-12-08] MEDS: dexAMETHasone 4 MG/ML VIAL IV SCH (11:51)
[2020-12-08] MEDS: ENOXAPARIN 40 MG/0.4 ML INJ SUB-Q SCH (11:51)
[2020-12-08] MEDS: FAMOTIDINE 20 MG TAB PO SCH ×2 (11:52→22:45)
--- NOTE | 2020-12-08 12:09 | Progress Note ---
Assessment and Plan Cultures: SARS CoV2 PCR: positive 12/06/2020 blood culture: no growth A/P: 55/M with borderline DM, HTN, HLD with: #COVID-19 pneumonia #Acute hypoxic respiratory failure: Hypoxic on room air. on salter NC. #Leukopenia: Likely from viral illness Recs: -continue remdesivir x 5 days, monitor LFTs -continue IV/PO Dexamethasone x 10 days -prophylactic anticoagulation based on d-dimer per hospital protocol -procalcitonin is low, abx not needed -trend ferritin, d-dimer, CRP every 2-3 days -Based on CRP and oxygen requirements, not a candidate for Tocilizumab Branden Sorensen MD, FACP [facility] [place] [facility] O: [phone] F: [phone] Subjective Date of service: 12/08/20 Interval history: No fever. Remains on oxygen. COVID-19 PCR came back positive. Objective - Exam Narrative Exam: Physical Exam (reviewed in chart to minimize risk of transmission) Constitutional: deferred Head, Ears, Nose: deferred Eyes: deferred Neck: deferred Oral: deferred Cardiovascular: deferred Respiratory: deferred GI: deferred Musculoskeletal: deferred Skin: deferred Hem/Lymphatic: deferred Psych: deferred Neurological: deferred - Constitutional Vitals: Vital Signs Temp Pulse Resp BP Pulse Ox 97.9 F 78 22 143/93 94 12/08/20 05:18 12/08/20 05:18 12/08/20 05:18 12/08/20 05:18 12/08/20 08:15 Temperature -Last 24 Hours Temperature 97.9 F Temperature 98.4 F - Labs CBC & Chem 7: 12/07/20 05:36 12/08/20 06:49 Labs: Abnormal lab results 12/07/20 12/07/20 12/07/20 Range/Units 15:08 18:11 21:13 Potassium 3.4 L (3.6-5.0) mmol/L Chloride 95.6 L (98-107) mmol/L BUN (7-17) mg/dL Glucose 145 H (65-100) mg/dL POC Glucose 143 H 120 H (70-105) mg/dL Total Protein 8.3 H (6.3-8.2) g/dL Coronavirus (PCR) (Negative) 12/07/20 12/08/20 Range/Units Unknown 06:49 Potassium 3.3 L (3.6-5.0) mmol/L Chloride (98-107) mmol/L BUN 18 H (7-17) mg/dL Glucose 102 H (65-100) mg/dL POC Glucose (70-105) mg/dL Total Protein (6.3-8.2) g/dL Coronavirus (PCR) Positive A (Negative)
[2020-12-08] MEDS: REMDESIVIR 100 MG in SODIUM CHLORIDE 0.9% 250ML 250 ML IV SCH (22:45)
[2020-12-08] MEDS: SODIUM CHLORIDE 0.9% 50 ML IVPB IV SCH (23:20)
[2020-12-09 05:40] LABS: Alanine Aminotransferase 16 units/L (7-56); Albumin 3.7 g/dL (3.9-5); Blood Urea Nitrogen 17 mg/dL (7-17); Calcium 8.9 mg/dL (8.4-10.2); Hemolysis Index 3
[2020-12-09 05:41] LABS: BUN/Creatinine Ratio 34
--- NOTE | 2020-12-09 08:26 | Progress Note ---
Assessment and Plan Assessment and plan: (1) Acute respiratory failure with hypoxia Current Visit: Yes Status: Acute Plan to address problem: Continue oxygen supplementation and keep oxygen saturation levels above 92 Possible Covid pneumonia IV Decadron initiated Respiratory assessment and treatment ID consult (2) SIRS (systemic inflammatory response syndrome) Current Visit: Yes Status: Acute Plan to address problem: All inflammatory markers are elevated including D-dimer which is 343 and CRP is 6.2 and ferritin is 767 consistent with systemic inflammatory response syndrome. (3) Multifocal pneumonia Current Visit: Yes Status: Acute Plan to address problem: Patient initiated on IV antibiotics including ceftriaxone and Zithromax for possible community-acquired pneumonia Procalcitonin is normal We will defer to ID regarding discontinuing antibiotics (4) Pneumonia due to COVID-19 virus Current Visit: Yes Status: Acute Plan to address problem: Patient initiated on IV Decadron Will defer to ID regarding remdesivir Coronavirus PCR pending (5) Hypokalemia Current Visit: Yes Status: Acute Plan to address problem: Supplemented (6) Hyponatremia Current Visit: Yes Status: Acute Plan to address problem: IV fluids in the form of normal saline for 12 hours Recheck sodium level (7) 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 Patient is on dexamethasone, will add remdesivir once we get the Covid test result positive. Procalcitonin level is normal and I discontinued antibiotics. Hypokalemia repleted according to electrolyte replacement protocol. Will monitor blood pressure. 12/08 -Patient is on 10 L of oxygen, wean off oxygen as tolerated -Covid test was positive and started on remdesivir and Decadron. ID is following. Will consult pulmonary. -Blood sugars in target, continue sliding scale insulin 12/09 -Patient was on 10 L of high flow oxygen, wean off oxygen as tolerated -Continue with remdesivir and Decadron, not a candidate for acterma -I gave her a dose of 40 mg of IV furosemide -Prognosis guarded -Blood sugar and blood pressure; in target History Interval history: Patient was seen and evaluated this morning Patient was on 10 L of high flow oxygen Patient states she become short of breath when she goes to the bathroom Hospitalist Physical - Physical exam Narrative exam: Not in cardiopulmonary distress. The patient is obese. Vital signs as documented. Head exam is unremarkable. No scleral icterus . Neck is without jugular venous distension, thyromegaly, or carotid bruits. Lungs decreased air entry. Cardiac exam reveals regular rate and Rhythm. Abdominal exam reveals normal bowel sounds, nontender, no organomegaly. Extremities are nonedematous and both femoral and pedal pulses are normal. 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 No focal weakness. - Constitutional Vitals: Temp Pulse Resp BP Pulse Ox 98.0 F 74 18 130/87 97 12/09/20 05:59 12/09/20 05:59 12/09/20 05:59 12/09/20 05:59 12/09/20 05:59 General appearance: Present: mild distress, well-nourished HEART Score - HEART Score Troponin: Troponin T < 0.010 ng/mL (0.00-0.029) 12/06/20 14:18 Results - Labs CBC & Chem 7: 12/07/20 05:36 12/09/20 04:22 Labs: Laboratory Last Values WBC 2.4 K/mm3 (4.5-11.0) L 12/07/20 05:36 RBC 4.65 M/mm3 (3.65-5.03) 12/07/20 05:36 Hgb 15.0 gm/dl (10.1-14.3) H 12/07/20 05:36 Hct 42.3 % (30.3-42.9) 12/07/20 05:36 MCV 91 fl (79-97) 12/07/20 05:36 MCH 32 pg (28-32) 12/07/20 05:36 MCHC 35 % (30-34) H 12/07/20 05:36 RDW 13.0 % (13.2-15.2) L 12/07/20 05:36 Plt Count 219 K/mm3 (140-440) 12/07/20 05:36 Lymph % (Auto) 14.6 % (13.4-35.0) 12/06/20 14:18 [place] % (Auto) Local Delivery Driver 12/07/20 05:36 Eos % (Auto) 0.0 % (0.0-4.3) 12/06/20 14:18 Baso % (Auto) 0.1 % (0.0-1.8) 12/06/20 14:18 Lymph # (Auto) 0.5 K/mm3 (1.2-5.4) L 12/06/20 14:18 [place] # (Auto) 0.5 K/mm3 (0.0-0.8) 12/06/20 14:18 Eos # (Auto) 0.0 K/mm3 (0.0-0.4) 12/06/20 14:18 Baso # (Auto) 0.0 K/mm3 (0.0-0.1) 12/06/20 14:18 Add Manual Diff Complete 12/07/20 05:36 Total Counted 100 12/07/20 05:36 Seg Neutrophils % 72.1 % (40.0-70.0) H 12/06/20 14:18 Seg Neuts % (Manual) 72.0 % (40.0-70.0) H 12/07/20 05:36 Band Neutrophils % 1.0 % 12/07/20 05:36 Lymphocytes % (Manual) 15.0 % (13.4-35.0) 12/07/20 05:36 Monocytes % (Manual) 12.0 % (0.0-7.3) H 12/07/20 05:36 Nucleated RBC % Not Reportable 12/07/20 05:36 Seg Neutrophils # 2.6 K/mm3 (1.8-7.7) 12/06/20 14:18 Seg Neutrophils # Man 1.7 K/mm3 (1.8-7.7) L 12/07/20 05:36 Band Neutrophils # 0.0 K/mm3 12/07/20 05:36 Lymphocytes # (Manual) 0.4 K/mm3 (1.2-5.4) L 12/07/20 05:36 Abs React Lymphs (Man) 0.0 K/mm3 12/07/20 05:36 Monocytes # (Manual) 0.3 K/mm3 (0.0-0.8) 12/07/20 05:36 Eosinophils # (Manual) 0.0 K/mm3 (0.0-0.4) 12/07/20 05:36 Basophils # (Manual) 0.0 K/mm3 (0.0-0.1) 12/07/20 05:36 Metamyelocytes # 0.0 K/mm3 12/07/20 05:36 Myelocytes # 0.0 K/mm3 12/07/20 05:36 Promyelocytes # 0.0 K/mm3 12/07/20 05:36 Blast Cells # 0.0 K/mm3 12/07/20 05:36 WBC Morphology Not Reportable 12/07/20 05:36 Hypersegmented Neuts Not Reportable 12/07/20 05:36 Hyposegmented Neuts Not Reportable 12/07/20 05:36 Hypogranular Neuts Not Reportable 12/07/20 05:36 Smudge Cells Not Reportable 12/07/20 05:36 Toxic Granulation Not Reportable 12/07/20 05:36 Toxic Vacuolation Not Reportable 12/07/20 05:36 Dohle Bodies Not Reportable 12/07/20 05:36 Pelger-Huet Anomaly Not Reportable 12/07/20 05:36 Tanya Rods Not Reportable 12/07/20 05:36 Platelet Estimate Cons 12/07/20 05:36 Clumped Platelets Not Reportable 12/07/20 05:36 Plt Clumps, EDTA Not Reportable 12/07/20 05:36 Large Platelets Few 12/07/20 05:36 Giant Platelets Not Reportable 12/07/20 05:36 Platelet Satelliting Not Reportable 12/07/20 05:36 Plt Morphology Comment Not Reportable 12/07/20 05:36 RBC Morphology Not Reportable 12/07/20 05:36 Dimorphic RBCs Not Reportable 12/07/20 05:36 Polychromasia Not Reportable 12/07/20 05:36 Hypochromasia 2+ 12/07/20 05:36 Poikilocytosis Not Reportable 12/07/20 05:36 Anisocytosis 2+ 12/07/20 05:36 Microcytosis 1+ 12/07/20 05:36 Macrocytosis Not Reportable 12/07/20 05:36 Spherocytes Not Reportable 12/07/20 05:36 Pappenheimer Bodies Not Reportable 12/07/20 05:36 Sickle Cells Not Reportable 12/07/20 05:36 Target Cells Not Reportable 12/07/20 05:36 Tear Drop Cells Not Reportable 12/07/20 05:36 Ovalocytes 1+ 12/07/20 05:36 Helmet Cells Not Reportable 12/07/20 05:36 Adhik[place] Bodies Not Reportable 12/07/20 05:36 [place] Rings Not Reportable 12/07/20 05:36 [place] Cells Not Reportable 12/07/20 05:36 Bite Cells Not Reportable 12/07/20 05:36 Crenated Cell Not Reportable 12/07/20 05:36 Elliptocytes Not Reportable 12/07/20 05:36 Acanthocytes (Spur) Not Reportable 12/07/20 05:36 Rouleaux Not Reportable 12/07/20 05:36 Hemoglobin C Crystals Not Reportable 12/07/20 05:36 Schistocytes Not Reportable 12/07/20 05:36 Malaria parasites Not Reportable 12/07/20 05:36 Shaun Bodies Not Reportable 12/07/20 05:36 Hem Pathologist Commnt No 12/07/20 05:36 D-Dimer 343.36 ng/mlDDU (0-234) H 12/06/20 14:18 Sodium 138 mmol/L (137-145) 12/09/20 04:22 Potassium 3.5 mmol/L (3.6-5.0) L 12/09/20 04:22 Chloride 100.0 mmol/L (98-107) 12/09/20 04:22 Carbon Dioxide 26 mmol/L (22-30) 12/09/20 04:22 Anion Gap 16 mmol/L 12/09/20 04:22 BUN 17 mg/dL (7-17) 12/09/20 04:22 Creatinine 0.5 mg/dL (0.6-1.2) L 12/09/20 04:22 Estimated GFR > 60 ml/min 12/09/20 04:22 BUN/Creatinine Ratio 34 % 12/09/20 04:22 Glucose 103 mg/dL (65-100) H 12/09/20 04:22 POC Glucose 92 mg/dL (70-105) 12/09/20 07:17 Hemoglobin A1c 6.1 % (4-6) H 12/07/20 05:36 Lactic Acid 1.30 mmol/L (0.7-2.0) 12/06/20 16:14 Calcium 8.9 mg/dL (8.4-10.2) 12/09/20 04:22 Ferritin 767.8 ng/mL (10.0-200.0) H 12/06/20 14:18 Total Bilirubin 0.40 mg/dL (0.1-1.2) 12/09/20 04:22 AST 22 units/L (5-40) 12/09/20 04:22 ALT 16 units/L (7-56) 12/09/20 04:22 Alkaline Phosphatase 90 units/L (35-129) 12/09/20 04:22 Lactate Dehydrogenase 373 units/L (91-180) H 12/06/20 14:18 Troponin T < 0.010 ng/mL (0.00-0.029) 12/06/20 14:18 C-Reactive Protein 6.20 mg/dL (0.00-1.30) H 12/06/20 14:18 Total Protein 7.3 g/dL (6.3-8.2) 12/09/20 04:22 Albumin 3.7 g/dL (3.9-5) L 12/09/20 04:22 Albumin/Globulin Ratio 1.0 % 12/09/20 04:22 Procalcitonin < 0.05 ng/mL (<0.15) 12/06/20 14:18 Coronavirus (PCR) Positive (Negative) A 12/07/20 Unknown Microbiology: Microbiology 12/06/20 14:18 Peripheral/Venous Blood Culture - Preliminary NO GROWTH AFTER 48 HOURS 12/06/20 14:18 Peripheral/Venous Blood Culture - Preliminary NO GROWTH AFTER 48 HOURS Wilkins/IV: Voiding Method Bedside Commode Active Medications - Current Medications Current Medications: Generic Name Dose Route Start Last Admin Trade Name Freq PRN Reason Stop Dose Admin Acetaminophen 650 mg 12/06/20 17:12 12/07/20 08:31 Acetaminophen 325 Mg Tab PO 650 mg Q4H PRN Administration Pain MILD(1-3)/Fever >100.5/[place] Al Hydrox/Mg Hydrox/Simethicone 30 ml 12/08/20 00:39 12/08/20 01:16 Alum-Mag Hydroxide-Simethicone 261-924-84lp/5ml Oral Liqd 30 Ml PO 30 ml Q4H PRN Administration Indigestion Dexamethasone 8 mg 12/07/20 10:00 12/08/20 11:51 Dexamethasone 4 Mg/Ml Vial IV 12/15/20 10:01 8 mg Q24H BRONWYN Administration Enoxaparin Sodium 40 mg 12/06/20 18:00 12/08/20 11:51 Enoxaparin 40 Mg/0.4 Ml Inj SUB-Q 40 mg QDAY BRONWYN Administration Famotidine 20 mg 12/06/20 22:00 12/08/20 22:45 Famotidine 20 Mg Tab PO 20 mg BID [facility] Administration Hydromorphone HCl 0.5 mg 12/06/20 17:13 Hydromorphone 1 Mg/1 Ml Inj IV Q3H PRN Pain , Severe (7-10) Hydrophilic Ointment 1 applic 12/07/20 14:44 Lip Therapy Vaseline TP DIRECT PRN Dry Lips Magnesium Sulfate 2 gm in 50 mls @ 25 mls/hr 12/07/20 07:16 Magnesium Sulfate 2gm/50ml IV Q2H PRN Magnesium level 1.5-1.7 mg/dL Sodium Phosphate 30 mmol/ 260 mls @ 40 mls/hr 12/07/20 07:16 Sodium Chloride IV Q6H PRN Phosphorous level < 1.2 mg/dL REMDESIVIR 100 mg/ Sodium 250 mls @ 500 mls/hr 12/08/20 21:00 12/08/20 22:45 Chloride IV 12/11/20 21:29 500 mls/hr Q24HR@2100 [facility] Administration Insulin Human Lispro 0 unit 12/07/20 11:30 12/08/20 22:00 Insulin Lispro 100 Unit/Ml SUB-Q Not Given ACHS [facility] Protocol Metoclopramide HCl 10 mg 12/06/20 17:13 Metoclopramide 10 Mg/2 Ml Inj IV Q6H PRN Nausea And Vomiting Ondansetron HCl 4 mg 12/06/20 17:12 Ondansetron 4 Mg/2 Ml Inj IV Q8H PRN Nausea And Vomiting Oxycodone/Acetaminophen 1 tab 12/06/20 17:13 Oxycodone /Acetaminophen 5-325mg Tab PO Q6H PRN Pain, Moderate (4-6) Potassium Chloride 20 meq 12/07/20 12:00 Potassium Chloride Er 20 Meq Tab PO Q2H PRN Potassium 3-3.5 mEq/L Potassium Chloride 20 meq 12/09/20 08:22 Potassium Chloride Er 20 Meq Tab PO 12/09/20 08:23 ONCE ONE Sodium Chloride 10 ml 12/06/20 22:00 12/08/20 22:45 Sodium Chloride 0.9% 10 Ml Flush Syringe IV 10 ml BID BRONWYN Administration Sodium Chloride 10 ml 12/06/20 17:12 Sodium Chloride 0.9% 10 Ml Flush Syringe IV PRN PRN LINE FLUSH Sodium Chloride 50 ml 12/07/20 17:00 12/08/20 23:20 Sodium Chloride 0.9% 50 Ml Ivpb IV 12/11/20 21:01 50 ml Q24HR@2100 BRONWYN Administration Nutrition/Malnutrition Assess - Dietary Evaluation Nutrition/Malnutrition Findings: Nutrition Notes Start: 12/07/20 12:11 Freq: Status: Active Protocol: Document 12/07/20 12:11 GB (Rec: 12/07/20 12:21 GB [email or web address]) Nutrition Notes 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 Initial or Follow up Assessment Current Diagnosis Respiratory Failure Other Pertinent Diagnosis SOB Current Diet consistent carbohydrate Labs/Tests 12/06: K 3, creatinine 0.5, glucose 130 Pertinent Medications Mg Sulfate, KCl, NaCl, Na Phosphate Height 5 ft 10 in Weight 99.79 kg [place] Body Weight (kg) 68.18 BMI 31.5 Intake Prior to Admission Good Weight change and time frame no reported change Weight Status Obese Subjective/Other Information Appetite decrease r/t SOB, reported loss of taste/smell Burn Absent Trauma Absent GI Symptoms None Food Allergy No Skin Integrity/Comment No reported skin complications Minimum of two criteria No #1 Nutrition Diagnosis Predicted suboptimal energy intake Comments: Possible COVID complications Etiology SOB, respiratory Failure As Evidenced by Signs and Symptoms reported decrease in appetite, loss of taste/smell Is patient on ventilator? No Is Patient Ambulatory and/or Out of Bed Yes REE-([facility]-ambulatory/OOB) [ 0255.095 NUTR.[id number]] Kcal/Kg value to use for calculation 18 Approximate Energy Requirements Using 1796 kcal/Kg Calculation Used for Recommendations Kcal/kg Additional Notes Protein: 0.8-1 g/kg @ 99k -99g Fluids: 1 ml/kcal or per MD Nutrition Intervention Change Diet Order: Continue Nutrition Support: consult for TF if pt progresses to BIpap or has significant weight loss 3% or greater Goal #1 PO intake of meals to maintain 50% or greater during LOS Goal #2 Weight to maintain within +/-3 % current weight during LOS Follow-Up By: 12/12/20 Additional Comments Follow up for TF if needed ( recommend glucerna 1.2). RN to record PO intake of meals monitor bed scale weight every 3 days.
[2020-12-09] MEDS: INSULIN LISPRO 100 UNIT/ML SUB-Q SCH ×4 (09:00→23:00)
[2020-12-09] MEDS: FAMOTIDINE 20 MG TAB PO SCH ×2 (09:01→22:59)
[2020-12-09] MEDS: ENOXAPARIN 40 MG/0.4 ML INJ SUB-Q SCH (09:01)
[2020-12-09] MEDS: dexAMETHasone 4 MG/ML VIAL IV SCH (09:02)
[2020-12-09] MEDS ORDERED: POTASSIUM CHLORIDE ER 20 MEQ TAB PO NR (09:30)
[2020-12-09] MEDS ORDERED: FUROSEMIDE 40 MG/4 ML INJ IV ONE (09:51)
--- NOTE | 2020-12-09 11:03 | Consultation ---
History of Present Illness Consult date: 12/09/20 Requesting physician: BENY COLLADO Reason for consult: hypoxemia, other (COVID) History of present illness: 55 y/o obese female admitted with acute respirator failure secondary to COVID pneumonia. Pulmonary consulted secondary to worsening oxygen requirement. Medications and Allergies Allergies Allergy/AdvReac Type Severity Reaction Status Date / Time No Known Allergies Allergy Unverified 12/06/20 12:56 Active Meds: Active Medications Acetaminophen (Acetaminophen 325 Mg Tab) 650 mg PO Q4H PRN PRN Reason: Pain MILD(1-3)/Fever >100.5/[place] Last Admin: 12/07/20 08:31 Dose: 650 mg Documented by: Al Hydrox/Mg Hydrox/Simethicone (Alum-Mag Hydroxide-Simethicone 410-579-62fr/5ml Oral Liqd 30 Ml) 30 ml PO Q4H PRN PRN Reason: Indigestion Last Admin: 12/08/20 01:16 Dose: 30 ml Documented by: Dexamethasone (Dexamethasone 4 Mg/Ml Vial) 8 mg IV Q24H [facility] Stop: 12/15/20 10:01 Last Admin: 12/09/20 09:02 Dose: 8 mg Documented by: Enoxaparin Sodium (Enoxaparin 40 Mg/0.4 Ml Inj) 40 mg SUB-Q QDAY [facility] Last Admin: 12/09/20 09:01 Dose: 40 mg Documented by: Famotidine (Famotidine 20 Mg Tab) 20 mg PO BID [facility] Last Admin: 12/09/20 09:01 Dose: 20 mg Documented by: Hydromorphone HCl (Hydromorphone 1 Mg/1 Ml Inj) 0.5 mg IV Q3H PRN PRN Reason: Pain , Severe (7-10) Hydrophilic Ointment (Lip Therapy Vaseline) 1 applic TP DIRECT PRN PRN Reason: Dry Lips Magnesium Sulfate (Magnesium Sulfate 2gm/50ml) 2 gm in 50 mls @ 25 mls/hr IV Q2H PRN PRN Reason: Magnesium level 1.5-1.7 mg/dL Sodium Phosphate 30 mmol/ (Sodium Chloride) 260 mls @ 40 mls/hr IV Q6H PRN PRN Reason: Phosphorous level < 1.2 mg/dL REMDESIVIR 100 mg/ Sodium (Chloride) 250 mls @ 500 mls/hr IV Q24HR@2100 [facility] Stop: 12/11/20 21:29 Last Admin: 12/08/20 22:45 Dose: 500 mls/hr Documented by: Insulin Human Lispro (Insulin Lispro 100 Unit/Ml) 0 unit SUB-Q ACHS [facility]; Protocol Last Admin: 12/09/20 09:00 Dose: Not Given Documented by: Metoclopramide HCl (Metoclopramide 10 Mg/2 Ml Inj) 10 mg IV Q6H PRN PRN Reason: Nausea And Vomiting Ondansetron HCl (Ondansetron 4 Mg/2 Ml Inj) 4 mg IV Q8H PRN PRN Reason: Nausea And Vomiting Oxycodone/Acetaminophen (Oxycodone /Acetaminophen 5-325mg Tab) 1 tab PO Q6H PRN PRN Reason: Pain, Moderate (4-6) Potassium Chloride (Potassium Chloride Er 20 Meq Tab) 20 meq PO Q2H PRN PRN Reason: Potassium 3-3.5 mEq/L Potassium Chloride (Potassium Chloride Er 20 Meq Tab) 20 meq PO ONCE@0930 NR Stop: 12/09/20 11:00 Last Admin: 12/09/20 09:01 Dose: 20 meq Documented by: Sodium Chloride (Sodium Chloride 0.9% 10 Ml Flush Syringe) 10 ml IV BID [facility] Last Admin: 12/09/20 09:01 Dose: 10 ml Documented by: Sodium Chloride (Sodium Chloride 0.9% 10 Ml Flush Syringe) 10 ml IV PRN PRN PRN Reason: LINE FLUSH Sodium Chloride (Sodium Chloride 0.9% 50 Ml Ivpb) 50 ml IV Q24HR@2100 [facility] Stop: 12/11/20 21:01 Last Admin: 12/08/20 23:20 Dose: 50 ml Documented by: Physical Examination Vital signs: Vital Signs Temp Pulse Resp BP Pulse Ox 98.5 F 96 H 24 139/84 84 12/06/20 12:58 12/06/20 12:58 12/06/20 12:58 12/06/20 12:58 12/06/20 12:58 General appearance: no acute distress Results - Laboratory Findings CBC and BMP: 12/07/20 05:36 12/09/20 04:22 PT/INR, D-dimer D-Dimer 343.36 ng/mlDDU (0-234) H 12/06/20 14:18 Abnormal lab findings: Abnormal Labs 12/06/20 12/06/20 12/06/20 14:18 14:18 14:18 WBC 3.6 L Hgb MCHC 35 H RDW 13.0 L [place] % (Auto) 13.2 H Lymph # (Auto) 0.5 L Seg Neutrophils % 72.1 H Seg Neuts % (Manual) Monocytes % (Manual) Seg Neutrophils # Man Lymphocytes # (Manual) D-Dimer 343.36 H Sodium 134 L Potassium 3.1 L Chloride 92.6 L Carbon Dioxide BUN Creatinine 0.5 L Glucose 122 H POC Glucose Hemoglobin A1c Ferritin Lactate Dehydrogenase C-Reactive Protein Total Protein Albumin Coronavirus (PCR) 12/06/20 12/06/20 12/07/20 14:18 14:18 05:36 WBC 2.4 L Hgb 15.0 H MCHC 35 H RDW 13.0 L [place] % (Auto) Lymph # (Auto) Seg Neutrophils % Seg Neuts % (Manual) 72.0 H Monocytes % (Manual) 12.0 H Seg Neutrophils # Man 1.7 L Lymphocytes # (Manual) 0.4 L D-Dimer Sodium Potassium Chloride Carbon Dioxide BUN Creatinine Glucose 120 H POC Glucose Hemoglobin A1c Ferritin 767.8 H Lactate Dehydrogenase 373 H C-Reactive Protein 6.20 H Total Protein Albumin Coronavirus (PCR) 12/07/20 12/07/20 12/07/20 05:36 05:36 10:48 WBC Hgb MCHC RDW [place] % (Auto) Lymph # (Auto) Seg Neutrophils % Seg Neuts % (Manual) Monocytes % (Manual) Seg Neutrophils # Man Lymphocytes # (Manual) D-Dimer Sodium Potassium 3.0 L Chloride 93.2 L Carbon Dioxide 31 H D BUN Creatinine 0.5 L Glucose 130 H POC Glucose 137 H Hemoglobin A1c 6.1 H Ferritin Lactate Dehydrogenase C-Reactive Protein Total Protein 8.5 H Albumin Coronavirus (PCR) 12/07/20 12/07/20 12/07/20 15:08 18:11 21:13 WBC Hgb MCHC RDW [place] % (Auto) Lymph # (Auto) Seg Neutrophils % Seg Neuts % (Manual) Monocytes % (Manual) Seg Neutrophils # Man Lymphocytes # (Manual) D-Dimer Sodium Potassium 3.4 L Chloride 95.6 L Carbon Dioxide BUN Creatinine Glucose 145 H POC Glucose 143 H 120 H Hemoglobin A1c Ferritin Lactate Dehydrogenase C-Reactive Protein Total Protein 8.3 H Albumin Coronavirus (PCR) 12/07/20 12/08/20 12/08/20 Unknown 06:49 16:55 WBC Hgb MCHC RDW [place] % (Auto) Lymph # (Auto) Seg Neutrophils % Seg Neuts % (Manual) Monocytes % (Manual) Seg Neutrophils # Man Lymphocytes # (Manual) D-Dimer Sodium Potassium 3.3 L Chloride Carbon Dioxide BUN 18 H Creatinine Glucose 102 H POC Glucose 146 H Hemoglobin A1c Ferritin Lactate Dehydrogenase C-Reactive Protein Total Protein Albumin Coronavirus (PCR) Positive A 12/08/20 12/09/20 20:49 04:22 WBC Hgb MCHC RDW [place] % (Auto) Lymph # (Auto) Seg Neutrophils % Seg Neuts % (Manual) Monocytes % (Manual) Seg Neutrophils # Man Lymphocytes # (Manual) D-Dimer Sodium Potassium 3.5 L Chloride Carbon Dioxide BUN Creatinine 0.5 L Glucose 103 H POC Glucose 127 H Hemoglobin A1c Ferritin Lactate Dehydrogenase C-Reactive Protein Total Protein Albumin 3.7 L Coronavirus (PCR) Assessment and Plan 55 y/o female with acute respiratory failure secondary to COVID pneumonia. 1. Suggest increasing steroids to BID if wanting to continue dex or changing to Solumedrol 125 mg IV q8 hours given increase in oxygen requirement 2. Recommend proning as tolerated during the day and sleep prone at night 3. Agree with Remdesivir therapy, defer to ID if candidate for actemra 4. Agree with lasix therapy and would recommend another dose for today. Guarded prognosis.
--- NOTE | 2020-12-09 18:15 | Progress Note ---
Assessment and Plan Cultures: SARS CoV2 PCR: positive 12/06/2020 blood culture: no growth A/P: 55/M with borderline DM, HTN, HLD with: #COVID-19 pneumonia #Acute hypoxic respiratory failure: Hypoxic on room air. on sal[place] NC. #Leukopenia: Likely from viral illness Recs: -continue remdesivir x 5 days, monitor LFTs -continue IV/PO Dexamethasone x 10 days -prophylactic anticoagulation based on d-dimer per hospital protocol -procalcitonin is low, abx not needed -trend ferritin, d-dimer, CRP every 2-3 days -Based on CRP and oxygen requirements, not a candidate for Tocilizumab Edy Verma MD [facility], [place], [facility] O: [phone] F: [phone] Subjective Date of service: 12/09/20 Interval history: Afebrile, no acute change. Currently on 10 L nasal cannula. Objective - Exam Narrative Exam: Physical exam deferred to reduce risk of transmission of COVID-19. Please refer to primary team's note. - Constitutional Vitals: Vital Signs Temp Pulse Resp BP Pulse Ox 97.7 F 77 24 143/104 92 12/09/20 11:32 12/09/20 11:32 12/09/20 11:32 12/09/20 11:32 12/09/20 12:00 Temperature -Last 24 Hours Temperature 97.7 F Temperature 98.0 F Temperature 98.8 F - Labs CBC & Chem 7: 12/07/20 05:36 12/09/20 04:22 Labs: Abnormal lab results 12/08/20 12/09/20 12/09/20 Range/Units 20:49 04:22 11:29 Potassium 3.5 L (3.6-5.0) mmol/L Creatinine 0.5 L (0.6-1.2) mg/dL Glucose 103 H (65-100) mg/dL POC Glucose 127 H 124 H (70-105) mg/dL Albumin 3.7 L (3.9-5) g/dL
[2020-12-09] MEDS: REMDESIVIR 100 MG in SODIUM CHLORIDE 0.9% 250ML 250 ML IV SCH (22:59)
[2020-12-09] MEDS: SODIUM CHLORIDE 0.9% 50 ML IVPB IV SCH (22:59)
[2020-12-10 05:04] LABS: Alanine Aminotransferase 16 units/L (7-56); Albumin 3.7 g/dL (3.9-5); Blood Urea Nitrogen 18 mg/dL (7-17); Calcium 8.9 mg/dL (8.4-10.2); Hemolysis Index 3
[2020-12-10 05:10] LABS: BUN/Creatinine Ratio 36
[2020-12-10] MEDS: INSULIN LISPRO 100 UNIT/ML SUB-Q SCH ×4 (08:18→21:41)
[2020-12-10] MEDS ORDERED: POTASSIUM CHLORIDE ER 20 MEQ TAB PO ONE (08:53)
--- NOTE | 2020-12-10 08:57 | Progress Note ---
Assessment and Plan Assessment and plan: (1) Acute respiratory failure with hypoxia Current Visit: Yes Status: Acute Plan to address problem: Continue oxygen supplementation and keep oxygen saturation levels above 92 Possible Covid pneumonia IV Decadron initiated Respiratory assessment and treatment ID consult (2) SIRS (systemic inflammatory response syndrome) Current Visit: Yes Status: Acute Plan to address problem: All inflammatory markers are elevated including D-dimer which is 343 and CRP is 6.2 and ferritin is 767 consistent with systemic inflammatory response syndrome. (3) Multifocal pneumonia Current Visit: Yes Status: Acute Plan to address problem: Patient initiated on IV antibiotics including ceftriaxone and Zithromax for possible community-acquired pneumonia Procalcitonin is normal We will defer to ID regarding discontinuing antibiotics (4) Pneumonia due to COVID-19 virus Current Visit: Yes Status: Acute Plan to address problem: Patient initiated on IV Decadron Will defer to ID regarding remdesivir Coronavirus PCR pending (5) Hypokalemia Current Visit: Yes Status: Acute Plan to address problem: Supplemented (6) Hyponatremia Current Visit: Yes Status: Acute Plan to address problem: IV fluids in the form of normal saline for 12 hours Recheck sodium level (7) 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 Patient is on dexamethasone, will add remdesivir once we get the Covid test result positive. Procalcitonin level is normal and I discontinued antibiotics. Hypokalemia repleted according to electrolyte replacement protocol. Will monitor blood pressure. 12/08 -Patient is on 10 L of oxygen, wean off oxygen as tolerated -Covid test was positive and started on remdesivir and Decadron. ID is following. Will consult pulmonary. -Blood sugars in target, continue sliding scale insulin 12/09 -Patient was on 10 L of high flow oxygen, wean off oxygen as tolerated -Continue with remdesivir and Decadron, not a candidate for acterma -I gave her a dose of 40 mg of IV furosemide -Prognosis guarded -Blood sugar and blood pressure; in target 12/10 -Patient's oxygen requirement went up to 15 L -Increase Decadron to twice daily dose, continue with remdesivir. ID saw the patient and said is not a candidate for Actemra -Continue with potassium replacement -Prognosis guarded History Interval history: Patient was seen and evaluated this morning Patient was on 15 L of oxygen via nasal cannula Patient states she become short of breath when she goes to the bathroom Hospitalist Physical - Physical exam Narrative exam: Not in cardiopulmonary distress. The patient is obese. Vital signs as documented. Head exam is unremarkable. No scleral icterus . Neck is without jugular venous distension, thyromegaly, or carotid bruits. Lungs decreased air entry. Cardiac exam reveals regular rate and Rhythm. Abdominal exam reveals normal bowel sounds, nontender, no organomegaly. Extremities are nonedematous and both femoral and pedal pulses are normal. 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 No focal weakness. - Constitutional Vitals: Temp Pulse Resp BP Pulse Ox 97.6 F 69 18 126/92 91 12/10/20 04:22 12/10/20 04:22 12/10/20 04:22 12/10/20 04:22 12/10/20 04:22 General appearance: Present: mild distress, well-nourished HEART Score - HEART Score Troponin: Troponin T < 0.010 ng/mL (0.00-0.029) 12/06/20 14:18 Results - Labs CBC & Chem 7: 12/07/20 05:36 12/10/20 04:05 Labs: Laboratory Last Values WBC 2.4 K/mm3 (4.5-11.0) L 12/07/20 05:36 RBC 4.65 M/mm3 (3.65-5.03) 12/07/20 05:36 Hgb 15.0 gm/dl (10.1-14.3) H 12/07/20 05:36 Hct 42.3 % (30.3-42.9) 12/07/20 05:36 MCV 91 fl (79-97) 12/07/20 05:36 MCH 32 pg (28-32) 12/07/20 05:36 MCHC 35 % (30-34) H 12/07/20 05:36 RDW 13.0 % (13.2-15.2) L 12/07/20 05:36 Plt Count 219 K/mm3 (140-440) 12/07/20 05:36 Lymph % (Auto) 14.6 % (13.4-35.0) 12/06/20 14:18 Early % (Auto) Care Center Manager 12/07/20 05:36 Eos % (Auto) 0.0 % (0.0-4.3) 12/06/20 14:18 Baso % (Auto) 0.1 % (0.0-1.8) 12/06/20 14:18 Lymph # (Auto) 0.5 K/mm3 (1.2-5.4) L 12/06/20 14:18 Early # (Auto) 0.5 K/mm3 (0.0-0.8) 12/06/20 14:18 Eos # (Auto) 0.0 K/mm3 (0.0-0.4) 12/06/20 14:18 Baso # (Auto) 0.0 K/mm3 (0.0-0.1) 12/06/20 14:18 Add Manual Diff Complete 12/07/20 05:36 Total Counted 100 12/07/20 05:36 Seg Neutrophils % 72.1 % (40.0-70.0) H 12/06/20 14:18 Seg Neuts % (Manual) 72.0 % (40.0-70.0) H 12/07/20 05:36 Band Neutrophils % 1.0 % 12/07/20 05:36 Lymphocytes % (Manual) 15.0 % (13.4-35.0) 12/07/20 05:36 Monocytes % (Manual) 12.0 % (0.0-7.3) H 12/07/20 05:36 Nucleated RBC % Not Reportable 12/07/20 05:36 Seg Neutrophils # 2.6 K/mm3 (1.8-7.7) 12/06/20 14:18 Seg Neutrophils # Man 1.7 K/mm3 (1.8-7.7) L 12/07/20 05:36 Band Neutrophils # 0.0 K/mm3 12/07/20 05:36 Lymphocytes # (Manual) 0.4 K/mm3 (1.2-5.4) L 12/07/20 05:36 Abs React Lymphs (Man) 0.0 K/mm3 12/07/20 05:36 Monocytes # (Manual) 0.3 K/mm3 (0.0-0.8) 12/07/20 05:36 Eosinophils # (Manual) 0.0 K/mm3 (0.0-0.4) 12/07/20 05:36 Basophils # (Manual) 0.0 K/mm3 (0.0-0.1) 12/07/20 05:36 Metamyelocytes # 0.0 K/mm3 12/07/20 05:36 Myelocytes # 0.0 K/mm3 12/07/20 05:36 Promyelocytes # 0.0 K/mm3 12/07/20 05:36 Blast Cells # 0.0 K/mm3 12/07/20 05:36 WBC Morphology Not Reportable 12/07/20 05:36 Hypersegmented Neuts Not Reportable 12/07/20 05:36 Hyposegmented Neuts Not Reportable 12/07/20 05:36 Hypogranular Neuts Not Reportable 12/07/20 05:36 Smudge Cells Not Reportable 12/07/20 05:36 Toxic Granulation Not Reportable 12/07/20 05:36 Toxic Vacuolation Not Reportable 12/07/20 05:36 Dohle Bodies Not Reportable 12/07/20 05:36 Pelger-Huet Anomaly Not Reportable 12/07/20 05:36 Tanya Rods Not Reportable 12/07/20 05:36 Platelet Estimate Cons 12/07/20 05:36 Clumped Platelets Not Reportable 12/07/20 05:36 Plt Clumps, EDTA Not Reportable 12/07/20 05:36 Large Platelets Few 12/07/20 05:36 Giant Platelets Not Reportable 12/07/20 05:36 Platelet Satelliting Not Reportable 12/07/20 05:36 Plt Morphology Comment Not Reportable 12/07/20 05:36 RBC Morphology Not Reportable 12/07/20 05:36 Dimorphic RBCs Not Reportable 12/07/20 05:36 Polychromasia Not Reportable 12/07/20 05:36 Hypochromasia 2+ 12/07/20 05:36 Poikilocytosis Not Reportable 12/07/20 05:36 Anisocytosis 2+ 12/07/20 05:36 Microcytosis 1+ 12/07/20 05:36 Macrocytosis Not Reportable 12/07/20 05:36 Spherocytes Not Reportable 12/07/20 05:36 Pappenheimer Bodies Not Reportable 12/07/20 05:36 Sickle Cells Not Reportable 12/07/20 05:36 Target Cells Not Reportable 12/07/20 05:36 Tear Drop Cells Not Reportable 12/07/20 05:36 Ovalocytes 1+ 12/07/20 05:36 Helmet Cells Not Reportable 12/07/20 05:36 Adhikari-Boyden Bodies Not Reportable 12/07/20 05:36 [place] Rings Not Reportable 12/07/20 05:36 Abbey Cells Not Reportable 12/07/20 05:36 Bite Cells Not Reportable 12/07/20 05:36 Crenated Cell Not Reportable 12/07/20 05:36 Elliptocytes Not Reportable 12/07/20 05:36 Acanthocytes (Spur) Not Reportable 12/07/20 05:36 Rouleaux Not Reportable 12/07/20 05:36 Hemoglobin C Crystals Not Reportable 12/07/20 05:36 Schistocytes Not Reportable 12/07/20 05:36 Malaria parasites Not Reportable 12/07/20 05:36 Shaun Bodies Not Reportable 12/07/20 05:36 Hem Pathologist Commnt No 12/07/20 05:36 D-Dimer 343.36 ng/mlDDU (0-234) H 12/06/20 14:18 Sodium 136 mmol/L (137-145) L 12/10/20 04:05 Potassium 3.4 mmol/L (3.6-5.0) L 12/10/20 04:05 Chloride 98.6 mmol/L (98-107) 12/10/20 04:05 Carbon Dioxide 27 mmol/L (22-30) 12/10/20 04:05 Anion Gap 14 mmol/L 12/10/20 04:05 BUN 18 mg/dL (7-17) H 12/10/20 04:05 Creatinine 0.5 mg/dL (0.6-1.2) L 12/10/20 04:05 Estimated GFR > 60 ml/min 12/10/20 04:05 BUN/Creatinine Ratio 36 % 12/10/20 04:05 Glucose 118 mg/dL (65-100) H 12/10/20 04:05 POC Glucose 87 mg/dL (70-105) 12/10/20 07:54 Hemoglobin A1c 6.1 % (4-6) H 12/07/20 05:36 Lactic Acid 1.30 mmol/L (0.7-2.0) 12/06/20 16:14 Calcium 8.9 mg/dL (8.4-10.2) 12/10/20 04:05 Ferritin 767.8 ng/mL (10.0-200.0) H 12/06/20 14:18 Total Bilirubin 0.30 mg/dL (0.1-1.2) 12/10/20 04:05 AST 18 units/L (5-40) 12/10/20 04:05 ALT 16 units/L (7-56) 12/10/20 04:05 Alkaline Phosphatase 89 units/L (35-129) 12/10/20 04:05 Lactate Dehydrogenase 373 units/L (91-180) H 12/06/20 14:18 Troponin T < 0.010 ng/mL (0.00-0.029) 12/06/20 14:18 C-Reactive Protein 6.20 mg/dL (0.00-1.30) H 12/06/20 14:18 Total Protein 7.1 g/dL (6.3-8.2) 12/10/20 04:05 Albumin 3.7 g/dL (3.9-5) L 12/10/20 04:05 Albumin/Globulin Ratio 1.1 % 12/10/20 04:05 Procalcitonin < 0.05 ng/mL (<0.15) 12/06/20 14:18 Coronavirus (PCR) Positive (Negative) A 12/07/20 Unknown Microbiology: Microbiology 12/06/20 14:18 Peripheral/Venous Blood Culture - Preliminary NO GROWTH AFTER 72 HOURS 12/06/20 14:18 Peripheral/Venous Blood Culture - Preliminary NO GROWTH AFTER 72 HOURS Wilkins/IV: Voiding Method Bedside Commode Active Medications - Current Medications Current Medications: Generic Name Dose Route Start Last Admin Trade Name Freq PRN Reason Stop Dose Admin Acetaminophen 650 mg 12/06/20 17:12 12/07/20 08:31 Acetaminophen 325 Mg Tab PO 650 mg Q4H PRN Administration Pain MILD(1-3)/Fever >100.5/[place] Al Hydrox/Mg Hydrox/Simethicone 30 ml 12/08/20 00:39 12/08/20 01:16 Alum-Mag Hydroxide-Simethicone 081-122-42iq/5ml Oral Liqd 30 Ml PO 30 ml Q4H PRN Administration Indigestion Dexamethasone 8 mg 12/10/20 10:00 Dexamethasone 4 Mg/Ml Vial IV 12/12/20 22:01 BID BRONWYN Enoxaparin Sodium 40 mg 12/06/20 18:00 12/09/20 09:01 Enoxaparin 40 Mg/0.4 Ml Inj SUB-Q 40 mg QDAY [facility] Administration Famotidine 20 mg 12/06/20 22:00 12/09/20 22:59 Famotidine 20 Mg Tab PO 20 mg BID BRONWYN Administration Hydromorphone HCl 0.5 mg 12/06/20 17:13 Hydromorphone 1 Mg/1 Ml Inj IV Q3H PRN Pain , Severe (7-10) Hydrophilic Ointment 1 applic 12/07/20 14:44 Lip Therapy Vaseline TP DIRECT PRN Dry Lips Magnesium Sulfate 2 gm in 50 mls @ 25 mls/hr 12/07/20 07:16 Magnesium Sulfate 2gm/50ml IV Q2H PRN Magnesium level 1.5-1.7 mg/dL Sodium Phosphate 30 mmol/ 260 mls @ 40 mls/hr 12/07/20 07:16 Sodium Chloride IV Q6H PRN Phosphorous level < 1.2 mg/dL REMDESIVIR 100 mg/ Sodium 250 mls @ 500 mls/hr 12/08/20 21:00 12/09/20 22:59 Chloride IV 12/11/20 21:29 500 mls/hr Q24HR@2100 BRONWYN Administration Insulin Human Lispro 0 unit 12/07/20 11:30 12/10/20 08:18 Insulin Lispro 100 Unit/Ml SUB-Q Not Given ACHS [facility] Protocol Metoclopramide HCl 10 mg 12/06/20 17:13 Metoclopramide 10 Mg/2 Ml Inj IV Q6H PRN Nausea And Vomiting Ondansetron HCl 4 mg 12/06/20 17:12 Ondansetron 4 Mg/2 Ml Inj IV Q8H PRN Nausea And Vomiting Oxycodone/Acetaminophen 1 tab 12/06/20 17:13 12/09/20 22:59 Oxycodone /Acetaminophen 5-325mg Tab PO 1 tab Q6H PRN Administration Pain, Moderate (4-6) Potassium Chloride 20 meq 12/07/20 12:00 Potassium Chloride Er 20 Meq Tab PO Q2H PRN Potassium 3-3.5 mEq/L Potassium Chloride 40 meq 12/10/20 08:53 Potassium Chloride Er 20 Meq Tab PO 12/10/20 08:54 ONCE ONE Sodium Chloride 10 ml 12/06/20 22:00 12/09/20 22:59 Sodium Chloride 0.9% 10 Ml Flush Syringe IV 10 ml BID BRONWYN Administration Sodium Chloride 10 ml 12/06/20 17:12 Sodium Chloride 0.9% 10 Ml Flush Syringe IV PRN PRN LINE FLUSH Sodium Chloride 50 ml 12/07/20 17:00 12/09/20 22:59 Sodium Chloride 0.9% 50 Ml Ivpb IV 12/11/20 21:01 50 ml Q24HR@2100 BRONWYN Administration Nutrition/Malnutrition Assess - Dietary Evaluation Nutrition/Malnutrition Findings: Nutrition Notes Start: 12/07/20 12:11 Freq: Status: Active Protocol: Document 12/07/20 12:11 GB (Rec: 12/07/20 12:21 GB [email or web address]) Nutrition Notes Need for Assessment generated from: refractory specialist Initial or Follow up Assessment Current Diagnosis Respiratory Failure Other Pertinent Diagnosis SOB Current Diet consistent carbohydrate Labs/Tests 12/06: K 3, creatinine 0.5, glucose 130 Pertinent Medications Mg Sulfate, KCl, NaCl, Na Phosphate Height 5 ft 10 in Weight 99.79 kg [place] Body Weight (kg) 68.18 BMI 31.5 Intake Prior to Admission Good Weight change and time frame no reported change Weight Status Obese Subjective/Other Information Appetite decrease r/t SOB, reported loss of taste/smell Burn Absent Trauma Absent GI Symptoms None Food Allergy No Skin Integrity/Comment No reported skin complications Minimum of two criteria No #1 Nutrition Diagnosis Predicted suboptimal energy intake Comments: Possible COVID complications Etiology SOB, respiratory Failure As Evidenced by Signs and Symptoms reported decrease in appetite, loss of taste/smell Is patient on ventilator? No Is Patient Ambulatory and/or Out of Bed Yes REE-([facility]-ambulatory/OOB) [ 2175.095 NUTR.[id number]] Kcal/Kg value to use for calculation 18 Approximate Energy Requirements Using 1796 kcal/Kg Calculation Used for Recommendations Kcal/kg Additional Notes Protein: 0.8-1 g/kg @ 99k -99g Fluids: 1 ml/kcal or per MD Nutrition Intervention Change Diet Order: Continue Nutrition Support: consult for TF if pt progresses to BIpap or has significant weight loss 3% or greater Goal #1 PO intake of meals to maintain 50% or greater during LOS Goal #2 Weight to maintain within +/-3 % current weight during LOS Follow-Up By: 12/12/20 Additional Comments Follow up for TF if needed ( recommend glucerna 1.2). RN to record PO intake of meals monitor bed scale weight every 3 days.
[2020-12-10] MEDS: dexAMETHasone 4 MG/ML VIAL IV SCH ×2 (09:24→21:40)
[2020-12-10] MEDS: ENOXAPARIN 40 MG/0.4 ML INJ SUB-Q SCH (09:24)
[2020-12-10] MEDS: FAMOTIDINE 20 MG TAB PO SCH ×2 (09:25→21:40)
--- NOTE | 2020-12-10 11:08 | Progress Note ---
Assessment and Plan 55 y/o female with acute respiratory failure secondary to COVID pneumonia. 12/10/20: Will give another dose of lasix today if IMS has not already done so. Agree with increase in steroids. Prone if possible. Guarded prognosis. 1. Suggest increasing steroids to BID if wanting to continue dex or changing to Solumedrol 125 mg IV q8 hours given increase in oxygen requirement 2. Recommend proning as tolerated during the day and sleep prone at night 3. Agree with Remdesivir therapy, defer to ID if candidate for actemra 4. Agree with lasix therapy and would recommend another dose for today. Guarded prognosis. Subjective Date of service: 12/10/20 Interval history: Oxygen requirement increased to 15 liters on yesterday but sats are much better today. I/O not accurate but suggest that patient is positive from a fluid standpoint. Objective Vital Signs - 12hr 12/10/20 12/10/20 12/10/20 00:00 02:00 04:22 Temperature 97.6 F Pulse Rate 69 Respiratory 18 Rate Blood Pressure 126/92 O2 Sat by Pulse 92 100 91 Oximetry Constitutional: no acute distress CBC and BMP: 12/07/20 05:36 12/10/20 04:05 ABG, PT/INR, D-dimer: PT/INR, D-dimer D-Dimer 343.36 ng/mlDDU (0-234) H 12/06/20 14:18 Abnormal lab findings: Abnormal Labs 12/06/20 12/06/20 12/06/20 14:18 14:18 14:18 WBC 3.6 L Hgb MCHC 35 H RDW 13.0 L Armstrong % (Auto) 13.2 H Lymph # (Auto) 0.5 L Seg Neutrophils % 72.1 H Seg Neuts % (Manual) Monocytes % (Manual) Seg Neutrophils # Man Lymphocytes # (Manual) D-Dimer 343.36 H Sodium 134 L Potassium 3.1 L Chloride 92.6 L Carbon Dioxide BUN Creatinine 0.5 L Glucose 122 H POC Glucose Hemoglobin A1c Ferritin Lactate Dehydrogenase C-Reactive Protein Total Protein Albumin Coronavirus (PCR) 12/06/20 12/06/20 12/07/20 14:18 14:18 05:36 WBC 2.4 L Hgb 15.0 H MCHC 35 H RDW 13.0 L Armstrong % (Auto) Lymph # (Auto) Seg Neutrophils % Seg Neuts % (Manual) 72.0 H Monocytes % (Manual) 12.0 H Seg Neutrophils # Man 1.7 L Lymphocytes # (Manual) 0.4 L D-Dimer Sodium Potassium Chloride Carbon Dioxide BUN Creatinine Glucose 120 H POC Glucose Hemoglobin A1c Ferritin 767.8 H Lactate Dehydrogenase 373 H C-Reactive Protein 6.20 H Total Protein Albumin Coronavirus (PCR) 12/07/20 12/07/20 12/07/20 05:36 05:36 10:48 WBC Hgb MCHC RDW Armstrong % (Auto) Lymph # (Auto) Seg Neutrophils % Seg Neuts % (Manual) Monocytes % (Manual) Seg Neutrophils # Man Lymphocytes # (Manual) D-Dimer Sodium Potassium 3.0 L Chloride 93.2 L Carbon Dioxide 31 H D BUN Creatinine 0.5 L Glucose 130 H POC Glucose 137 H Hemoglobin A1c 6.1 H Ferritin Lactate Dehydrogenase C-Reactive Protein Total Protein 8.5 H Albumin Coronavirus (PCR) 12/07/20 12/07/20 12/07/20 15:08 18:11 21:13 WBC Hgb MCHC RDW Armstrong % (Auto) Lymph # (Auto) Seg Neutrophils % Seg Neuts % (Manual) Monocytes % (Manual) Seg Neutrophils # Man Lymphocytes # (Manual) D-Dimer Sodium Potassium 3.4 L Chloride 95.6 L Carbon Dioxide BUN Creatinine Glucose 145 H POC Glucose 143 H 120 H Hemoglobin A1c Ferritin Lactate Dehydrogenase C-Reactive Protein Total Protein 8.3 H Albumin Coronavirus (PCR) 12/07/20 12/08/20 12/08/20 Unknown 06:49 16:55 WBC Hgb MCHC RDW Armstrong % (Auto) Lymph # (Auto) Seg Neutrophils % Seg Neuts % (Manual) Monocytes % (Manual) Seg Neutrophils # Man Lymphocytes # (Manual) D-Dimer Sodium Potassium 3.3 L Chloride Carbon Dioxide BUN 18 H Creatinine Glucose 102 H POC Glucose 146 H Hemoglobin A1c Ferritin Lactate Dehydrogenase C-Reactive Protein Total Protein Albumin Coronavirus (PCR) Positive A 12/08/20 12/09/20 12/09/20 20:49 04:22 11:29 WBC Hgb MCHC RDW Armstrong % (Auto) Lymph # (Auto) Seg Neutrophils % Seg Neuts % (Manual) Monocytes % (Manual) Seg Neutrophils # Man Lymphocytes # (Manual) D-Dimer Sodium Potassium 3.5 L Chloride Carbon Dioxide BUN Creatinine 0.5 L Glucose 103 H POC Glucose 127 H 124 H Hemoglobin A1c Ferritin Lactate Dehydrogenase C-Reactive Protein Total Protein Albumin 3.7 L Coronavirus (PCR) 12/09/20 12/10/20 12/10/20 22:27 04:05 10:28 WBC Hgb MCHC RDW Armstrong % (Auto) Lymph # (Auto) Seg Neutrophils % Seg Neuts % (Manual) Monocytes % (Manual) Seg Neutrophils # Man Lymphocytes # (Manual) D-Dimer Sodium 136 L Potassium 3.4 L Chloride Carbon Dioxide BUN 18 H Creatinine 0.5 L Glucose 118 H POC Glucose 137 H 123 H Hemoglobin A1c Ferritin Lactate Dehydrogenase C-Reactive Protein Total Protein Albumin 3.7 L Coronavirus (PCR)
[2020-12-10] MEDS: REMDESIVIR 100 MG in SODIUM CHLORIDE 0.9% 250ML 250 ML IV SCH (21:39)
[2020-12-10] MEDS: SODIUM CHLORIDE 0.9% 50 ML IVPB IV SCH (21:40)
--- NOTE | 2020-12-11 09:16 | Progress Note ---
Assessment and Plan Assessment and plan: (1) Acute respiratory failure with hypoxia Current Visit: Yes Status: Acute Plan to address problem: Continue oxygen supplementation and keep oxygen saturation levels above 92 Possible Covid pneumonia IV Decadron initiated Respiratory assessment and treatment ID consult (2) SIRS (systemic inflammatory response syndrome) Current Visit: Yes Status: Acute Plan to address problem: All inflammatory markers are elevated including D-dimer which is 343 and CRP is 6.2 and ferritin is 767 consistent with systemic inflammatory response syndrome. (3) Multifocal pneumonia Current Visit: Yes Status: Acute Plan to address problem: Patient initiated on IV antibiotics including ceftriaxone and Zithromax for possible community-acquired pneumonia Procalcitonin is normal We will defer to ID regarding discontinuing antibiotics (4) Pneumonia due to COVID-19 virus Current Visit: Yes Status: Acute Plan to address problem: Patient initiated on IV Decadron Will defer to ID regarding remdesivir Coronavirus PCR pending (5) Hypokalemia Current Visit: Yes Status: Acute Plan to address problem: Supplemented (6) Hyponatremia Current Visit: Yes Status: Acute Plan to address problem: IV fluids in the form of normal saline for 12 hours Recheck sodium level (7) 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 Patient is on dexamethasone, will add remdesivir once we get the Covid test result positive. Procalcitonin level is normal and I discontinued antibiotics. Hypokalemia repleted according to electrolyte replacement protocol. Will monitor blood pressure. 12/08 -Patient is on 10 L of oxygen, wean off oxygen as tolerated -Covid test was positive and started on remdesivir and Decadron. ID is following. Will consult pulmonary. -Blood sugars in target, continue sliding scale insulin 12/09 -Patient was on 10 L of high flow oxygen, wean off oxygen as tolerated -Continue with remdesivir and Decadron, not a candidate for acterma -I gave her a dose of 40 mg of IV furosemide -Prognosis guarded -Blood sugar and blood pressure; in target 12/10 -Patient's oxygen requirement went up to 15 L -Increase Decadron to twice daily dose, continue with remdesivir. ID saw the patient and said is not a candidate for Actemra -Continue with potassium replacement -Prognosis guarded 12/11: Considering some improvement, will wean to 3 liters of oxygen, Obtain Home O2 eval in am. Otherwise continue current management monitor electrolytes and replace as needed. Counseling provided to the patient History Interval history: Patient seen and examined, this morning while at rest and off oxygen for a few minutes, his oxygen saturation dropped to 93% from 98. she reports some improvement Hospitalist Physical - Physical exam Narrative exam: VITAL SIGNS: Reviewed. GENERAL: The patient appears normally developed, obese, mildly short of breath. Vital signs as documented. HEAD: No signs of head trauma. EYES: Pupils are equal. Extraocular motions intact. EARS: Hearing grossly intact. MOUTH: Oropharynx is normal. NECK: No adenopathy, no JVD. CHEST: Chest with diminished breath sounds bilaterally. No wheezes, rales, or rhonchi. CARDIAC: Regular rate and rhythm. S1 and S2, without murmurs, gallops, or rubs. VASCULAR: No Edema. Peripheral pulses normal and equal in all extremities. ABDOMEN: Soft, non tender and non distended. No rebound or guarding, and no masses palpated. Bowel Sounds normal. MUSCULOSKELETAL: Good range of motion of all major joints. Extremities without clubbing, cyanosis or edema. NEUROLOGIC EXAM: Alert and oriented x 3 No focal sensory or strength deficits. Speech normal. Follows commands. PSYCHIATRIC: Mood normal. SKIN: detail exam as documented in skin assessment - Constitutional Vitals: Temp Pulse Resp BP Pulse Ox 97.9 F 60 20 103/64 97 12/11/20 06:09 12/11/20 06:09 12/11/20 06:09 12/11/20 06:09 12/11/20 06:09 General appearance: Present: mild distress, well-nourished HEART Score - HEART Score Troponin: Troponin T < 0.010 ng/mL (0.00-0.029) 12/06/20 14:18 Results - Labs CBC & Chem 7: 12/07/20 05:36 12/10/20 04:05 Labs: Laboratory Last Values WBC 2.4 K/mm3 (4.5-11.0) L 12/07/20 05:36 RBC 4.65 M/mm3 (3.65-5.03) 12/07/20 05:36 Hgb 15.0 gm/dl (10.1-14.3) H 12/07/20 05:36 Hct 42.3 % (30.3-42.9) 12/07/20 05:36 MCV 91 fl (79-97) 12/07/20 05:36 MCH 32 pg (28-32) 12/07/20 05:36 MCHC 35 % (30-34) H 12/07/20 05:36 RDW 13.0 % (13.2-15.2) L 12/07/20 05:36 Plt Count 219 K/mm3 (140-440) 12/07/20 05:36 Lymph % (Auto) 14.6 % (13.4-35.0) 12/06/20 14:18 [place] % (Auto) Belt Fixer 12/07/20 05:36 Eos % (Auto) 0.0 % (0.0-4.3) 12/06/20 14:18 Baso % (Auto) 0.1 % (0.0-1.8) 12/06/20 14:18 Lymph # (Auto) 0.5 K/mm3 (1.2-5.4) L 12/06/20 14:18 [place] # (Auto) 0.5 K/mm3 (0.0-0.8) 12/06/20 14:18 Eos # (Auto) 0.0 K/mm3 (0.0-0.4) 12/06/20 14:18 Baso # (Auto) 0.0 K/mm3 (0.0-0.1) 12/06/20 14:18 Add Manual Diff Complete 12/07/20 05:36 Total Counted 100 12/07/20 05:36 Seg Neutrophils % 72.1 % (40.0-70.0) H 12/06/20 14:18 Seg Neuts % (Manual) 72.0 % (40.0-70.0) H 12/07/20 05:36 Band Neutrophils % 1.0 % 12/07/20 05:36 Lymphocytes % (Manual) 15.0 % (13.4-35.0) 12/07/20 05:36 Monocytes % (Manual) 12.0 % (0.0-7.3) H 12/07/20 05:36 Nucleated RBC % Not Reportable 12/07/20 05:36 Seg Neutrophils # 2.6 K/mm3 (1.8-7.7) 12/06/20 14:18 Seg Neutrophils # Man 1.7 K/mm3 (1.8-7.7) L 12/07/20 05:36 Band Neutrophils # 0.0 K/mm3 12/07/20 05:36 Lymphocytes # (Manual) 0.4 K/mm3 (1.2-5.4) L 12/07/20 05:36 Abs React Lymphs (Man) 0.0 K/mm3 12/07/20 05:36 Monocytes # (Manual) 0.3 K/mm3 (0.0-0.8) 12/07/20 05:36 Eosinophils # (Manual) 0.0 K/mm3 (0.0-0.4) 12/07/20 05:36 Basophils # (Manual) 0.0 K/mm3 (0.0-0.1) 12/07/20 05:36 Metamyelocytes # 0.0 K/mm3 12/07/20 05:36 Myelocytes # 0.0 K/mm3 12/07/20 05:36 Promyelocytes # 0.0 K/mm3 12/07/20 05:36 Blast Cells # 0.0 K/mm3 12/07/20 05:36 WBC Morphology Not Reportable 12/07/20 05:36 Hypersegmented Neuts Not Reportable 12/07/20 05:36 Hyposegmented Neuts Not Reportable 12/07/20 05:36 Hypogranular Neuts Not Reportable 12/07/20 05:36 Smudge Cells Not Reportable 12/07/20 05:36 Toxic Granulation Not Reportable 12/07/20 05:36 Toxic Vacuolation Not Reportable 12/07/20 05:36 Dohle Bodies Not Reportable 12/07/20 05:36 Pelger-Huet Anomaly Not Reportable 12/07/20 05:36 Tanya Rods Not Reportable 12/07/20 05:36 Platelet Estimate Cons 12/07/20 05:36 Clumped Platelets Not Reportable 12/07/20 05:36 Plt Clumps, EDTA Not Reportable 12/07/20 05:36 Large Platelets Few 12/07/20 05:36 Giant Platelets Not Reportable 12/07/20 05:36 Platelet Satelliting Not Reportable 12/07/20 05:36 Plt Morphology Comment Not Reportable 12/07/20 05:36 RBC Morphology Not Reportable 12/07/20 05:36 Dimorphic RBCs Not Reportable 12/07/20 05:36 Polychromasia Not Reportable 12/07/20 05:36 Hypochromasia 2+ 12/07/20 05:36 Poikilocytosis Not Reportable 12/07/20 05:36 Anisocytosis 2+ 12/07/20 05:36 Microcytosis 1+ 12/07/20 05:36 Macrocytosis Not Reportable 12/07/20 05:36 Spherocytes Not Reportable 12/07/20 05:36 Pappenheimer Bodies Not Reportable 12/07/20 05:36 Sickle Cells Not Reportable 12/07/20 05:36 Target Cells Not Reportable 12/07/20 05:36 Tear Drop Cells Not Reportable 12/07/20 05:36 Ovalocytes 1+ 12/07/20 05:36 Helmet Cells Not Reportable 12/07/20 05:36 [place] Bodies Not Reportable 12/07/20 05:36 [place] Rings Not Reportable 12/07/20 05:36 [place] Cells Not Reportable 12/07/20 05:36 Bite Cells Not Reportable 12/07/20 05:36 Crenated Cell Not Reportable 12/07/20 05:36 Elliptocytes Not Reportable 12/07/20 05:36 Acanthocytes (Spur) Not Reportable 12/07/20 05:36 Rouleaux Not Reportable 12/07/20 05:36 Hemoglobin C Crystals Not Reportable 12/07/20 05:36 Schistocytes Not Reportable 12/07/20 05:36 Malaria parasites Not Reportable 12/07/20 05:36 Shaun Bodies Not Reportable 12/07/20 05:36 Hem Pathologist Commnt No 12/07/20 05:36 D-Dimer 343.36 ng/mlDDU (0-234) H 12/06/20 14:18 Sodium 136 mmol/L (137-145) L 12/10/20 04:05 Potassium 3.4 mmol/L (3.6-5.0) L 12/10/20 04:05 Chloride 98.6 mmol/L (98-107) 12/10/20 04:05 Carbon Dioxide 27 mmol/L (22-30) 12/10/20 04:05 Anion Gap 14 mmol/L 12/10/20 04:05 BUN 18 mg/dL (7-17) H 12/10/20 04:05 Creatinine 0.5 mg/dL (0.6-1.2) L 12/10/20 04:05 Estimated GFR > 60 ml/min 12/10/20 04:05 BUN/Creatinine Ratio 36 % 12/10/20 04:05 Glucose 118 mg/dL (65-100) H 12/10/20 04:05 POC Glucose 144 mg/dL (70-105) H 12/11/20 07:48 Hemoglobin A1c 6.1 % (4-6) H 12/07/20 05:36 Lactic Acid 1.30 mmol/L (0.7-2.0) 12/06/20 16:14 Calcium 8.9 mg/dL (8.4-10.2) 12/10/20 04:05 Ferritin 767.8 ng/mL (10.0-200.0) H 12/06/20 14:18 Total Bilirubin 0.30 mg/dL (0.1-1.2) 12/10/20 04:05 AST 18 units/L (5-40) 12/10/20 04:05 ALT 16 units/L (7-56) 12/10/20 04:05 Alkaline Phosphatase 89 units/L (35-129) 12/10/20 04:05 Lactate Dehydrogenase 373 units/L (91-180) H 12/06/20 14:18 Troponin T < 0.010 ng/mL (0.00-0.029) 12/06/20 14:18 C-Reactive Protein 6.20 mg/dL (0.00-1.30) H 12/06/20 14:18 Total Protein 7.1 g/dL (6.3-8.2) 12/10/20 04:05 Albumin 3.7 g/dL (3.9-5) L 12/10/20 04:05 Albumin/Globulin Ratio 1.1 % 12/10/20 04:05 Procalcitonin < 0.05 ng/mL (<0.15) 12/06/20 14:18 Coronavirus (PCR) Positive (Negative) A 12/07/20 Unknown Microbiology: Microbiology 12/06/20 14:18 Peripheral/Venous Blood Culture - Preliminary NO GROWTH AFTER 4 DAYS 12/06/20 14:18 Peripheral/Venous Blood Culture - Preliminary NO GROWTH AFTER 4 DAYS Wil[place]/IV: Voiding Method Bedside Commode Active Medications - Current Medications Current Medications: Generic Name Dose Route Start Last Admin Trade Name Freq PRN Reason Stop Dose Admin Acetaminophen 650 mg 12/06/20 17:12 12/07/20 08:31 Acetaminophen 325 Mg Tab PO 650 mg Q4H PRN Administration Pain MILD(1-3)/Fever >100.5/[place] Al Hydrox/Mg Hydrox/Simethicone 30 ml 12/08/20 00:39 12/08/20 01:16 Alum-Mag Hydroxide-Simethicone [id number]/5ml Oral Liqd 30 Ml PO 30 ml Q4H PRN Administration Indigestion Dexamethasone 8 mg 12/10/20 10:00 12/10/20 21:40 Dexamethasone 4 Mg/Ml Vial IV 12/15/20 12:59 8 mg BID BRONWYN Administration Enoxaparin Sodium 40 mg 12/06/20 18:00 12/10/20 09:24 Enoxaparin 40 Mg/0.4 Ml Inj SUB-Q 40 mg QDAY BRONWYN Administration Famotidine 20 mg 12/06/20 22:00 12/10/20 21:40 Famotidine 20 Mg Tab PO 20 mg BID BRONWYN Administration Hydromorphone HCl 0.5 mg 12/06/20 17:13 Hydromorphone 1 Mg/1 Ml Inj IV Q3H PRN Pain , Severe (7-10) Hydrophilic Ointment 1 applic 12/07/20 14:44 Lip Therapy Vaseline TP DIRECT PRN Dry Lips Magnesium Sulfate 2 gm in 50 mls @ 25 mls/hr 12/07/20 07:16 Magnesium Sulfate 2gm/50ml IV Q2H PRN Magnesium level 1.5-1.7 mg/dL Sodium Phosphate 30 mmol/ 260 mls @ 40 mls/hr 12/07/20 07:16 Sodium Chloride IV Q6H PRN Phosphorous level < 1.2 mg/dL REMDESIVIR 100 mg/ Sodium 250 mls @ 500 mls/hr 12/08/20 21:00 12/10/20 21:39 Chloride IV 12/11/20 21:29 500 mls/hr Q24HR@2100 BRONWYN Administration Insulin Human Lispro 0 unit 12/07/20 11:30 12/10/20 21:41 Insulin Lispro 100 Unit/Ml SUB-Q Not Given ACHS [facility] Protocol Metoclopramide HCl 10 mg 12/06/20 17:13 Metoclopramide 10 Mg/2 Ml Inj IV Q6H PRN Nausea And Vomiting Ondansetron HCl 4 mg 12/06/20 17:12 Ondansetron 4 Mg/2 Ml Inj IV Q8H PRN Nausea And Vomiting Oxycodone/Acetaminophen 1 tab 12/06/20 17:13 12/09/20 22:59 Oxycodone /Acetaminophen 5-325mg Tab PO 1 tab Q6H PRN Administration Pain, Moderate (4-6) Potassium Chloride 20 meq 12/07/20 12:00 Potassium Chloride Er 20 Meq Tab PO Q2H PRN Potassium 3-3.5 mEq/L Sodium Chloride 10 ml 12/06/20 22:00 12/10/20 21:41 Sodium Chloride 0.9% 10 Ml Flush Syringe IV 10 ml BID BRONWYN Administration Sodium Chloride 10 ml 12/06/20 17:12 Sodium Chloride 0.9% 10 Ml Flush Syringe IV PRN PRN LINE FLUSH Sodium Chloride 50 ml 12/07/20 17:00 12/10/20 21:40 Sodium Chloride 0.9% 50 Ml Ivpb IV 12/11/20 21:01 50 ml Q24HR@2100 BRONWYN Administration Nutrition/Malnutrition Assess - Dietary Evaluation Nutrition/Malnutrition Findings: Nutrition Notes Start: 12/07/20 12:11 Freq: Status: Active Protocol: Document 12/07/20 12:11 GB (Rec: 12/07/20 12:21 GB [id number]) Nutrition Notes Need for Assessment generated from: accuracy expert Initial or Follow up Assessment Current Diagnosis Respiratory Failure Other Pertinent Diagnosis SOB Current Diet consistent carbohydrate Labs/Tests 12/06: K 3, creatinine 0.5, glucose 130 Pertinent Medications Mg Sulfate, KCl, NaCl, Na Phosphate Height 5 ft 10 in Weight 99.79 kg [place] Body Weight (kg) 68.18 BMI 31.5 Intake Prior to Admission Good Weight change and time frame no reported change Weight Status Obese Subjective/Other Information Appetite decrease r/t SOB, reported loss of taste/smell Burn Absent Trauma Absent GI Symptoms None Food Allergy No Skin Integrity/Comment No reported skin complications Minimum of two criteria No #1 Nutrition Diagnosis Predicted suboptimal energy intake Comments: Possible COVID complications Etiology SOB, respiratory Failure As Evidenced by Signs and Symptoms reported decrease in appetite, loss of taste/smell Is patient on ventilator? No Is Patient Ambulatory and/or Out of Bed Yes [facility]) [ 2175.095 NUTR.[id number]] Kcal/Kg value to use for calculation 18 Approximate Energy Requirements Using 1796 kcal/Kg Calculation Used for Recommendations Kcal/kg Additional Notes Protein: 0.8-1 g/kg @ 99k -99g Fluids: 1 ml/kcal or per MD Nutrition Intervention Change Diet Order: Continue Nutrition Support: consult for TF if pt progresses to BIpap or has significant weight loss 3% or greater Goal #1 PO intake of meals to maintain 50% or greater during LOS Goal #2 Weight to maintain within +/-3 % current weight during LOS Follow-Up By: 12/12/20 Additional Comments Follow up for TF if needed ( recommend glucerna 1.2). RN to record PO intake of meals monitor bed scale weight every 3 days.
[2020-12-11] MEDS ORDERED: POTASSIUM CHLORIDE ER 20 MEQ TAB PO NR (09:30)
[2020-12-11] MEDS: dexAMETHasone 4 MG/ML VIAL IV SCH ×2 (10:02→21:21)
[2020-12-11] MEDS: FAMOTIDINE 20 MG TAB PO SCH ×2 (10:03→21:21)
[2020-12-11] MEDS: INSULIN LISPRO 100 UNIT/ML SUB-Q SCH ×4 (10:03→21:30)
[2020-12-11] MEDS: ENOXAPARIN 40 MG/0.4 ML INJ SUB-Q SCH (10:03)
--- NOTE | 2020-12-11 11:48 | Progress Note ---
Assessment and Plan Cultures: SARS CoV2 PCR: positive 12/06/2020 blood culture: no growth A/P: 55/M with borderline DM, HTN, HLD with: #COVID-19 pneumonia #Acute hypoxic respiratory failure: Hypoxic on room air. on [place] NC. #Leukopenia: Likely from viral illness Recs: -continue remdesivir x 5 days, monitor LFTs -continue steroids x 10 days -prophylactic anticoagulation based on d-dimer per hospital protocol -trend ferritin, d-dimer, CRP every 2-3 days -Based on CRP and oxygen requirements, not a candidate for Tocilizumab ID will sign off. Please reconsult as needed. Branden Sorensen MD, FACP [facility] ([facility] O: [phone] F: [phone] Subjective Date of service: 12/11/20 Interval history: No fever. Remains on oxygen. High requirements at 12 L/min. CRP down to 1.3 Objective - Exam Narrative Exam: Physical Exam (reviewed in chart to minimize risk of transmission) Constitutional: deferred Head, Ears, Nose: deferred Eyes: deferred Neck: deferred Oral: deferred Cardiovascular: deferred Respiratory: deferred GI: deferred Musculoskeletal: deferred Skin: deferred Hem/Lymphatic: deferred Psych: deferred Neurological: deferred - Constitutional Vitals: Vital Signs Temp Pulse Resp BP Pulse Ox 97.9 F 60 20 103/64 96 12/11/20 06:09 12/11/20 06:09 12/11/20 06:09 12/11/20 06:09 12/11/20 08:00 Temperature -Last 24 Hours Temperature 97.9 F Temperature 98.1 F Temperature 98.0 F - Labs CBC & Chem 7: 12/07/20 05:36 12/10/20 04:05 Labs: Abnormal lab results 12/10/20 12/11/20 12/11/20 Range/Units 16:06 07:48 08:59 D-Dimer 333.65 H (0-234) ng/mlDDU POC Glucose 148 H 144 H (70-105) mg/dL Ferritin (10.0-200.0) ng/mL Lactate Dehydrogenase (91-180) units/L 12/11/20 12/11/20 Range/Units 08:59 08:59 D-Dimer (0-234) ng/mlDDU POC Glucose (70-105) mg/dL Ferritin 671.1 H (10.0-200.0) ng/mL Lactate Dehydrogenase 257 H (91-180) units/L
--- NOTE | 2020-12-11 11:55 | Progress Note ---
Assessment and Plan 55 y/o female with acute respiratory failure secondary to COVID pneumonia. 12/11/20: Hold on additional lasix dosing. Continue steroids and proning. Remdesivir. Guarded prognosis 12/10/20: Will give another dose of lasix today if IMS has not already done so. Agree with increase in steroids. Prone if possible. Guarded prognosis. 1. Suggest increasing steroids to BID if wanting to continue dex or changing to Solumedrol 125 mg IV q8 hours given increase in oxygen requirement 2. Recommend proning as tolerated during the day and sleep prone at night 3. Agree with Remdesivir therapy, defer to ID if candidate for actemra 4. Agree with lasix therapy and would recommend another dose for today. Guarded prognosis. Subjective Date of service: 12/11/20 Interval history: Down to 10 liters. Objective Vital Signs - 12hr 12/11/20 12/11/20 12/11/20 00:25 06:09 08:00 Temperature 97.9 F Pulse Rate 60 Respiratory 21 20 Rate Blood Pressure 103/64 O2 Sat by Pulse 99 97 96 Oximetry Constitutional: no acute distress CBC and BMP: 12/07/20 05:36 12/10/20 04:05 ABG, PT/INR, D-dimer: PT/INR, D-dimer D-Dimer 333.65 ng/mlDDU (0-234) H 12/11/20 08:59 Abnormal lab findings: Abnormal Labs 12/06/20 12/06/20 12/06/20 14:18 14:18 14:18 WBC 3.6 L Hgb MCHC 35 H RDW 13.0 L [place] % (Auto) 13.2 H Lymph # (Auto) 0.5 L Seg Neutrophils % 72.1 H Seg Neuts % (Manual) Monocytes % (Manual) Seg Neutrophils # Man Lymphocytes # (Manual) D-Dimer 343.36 H Sodium 134 L Potassium 3.1 L Chloride 92.6 L Carbon Dioxide BUN Creatinine 0.5 L Glucose 122 H POC Glucose Hemoglobin A1c Ferritin Lactate Dehydrogenase C-Reactive Protein Total Protein Albumin Coronavirus (PCR) 12/06/20 12/06/20 12/07/20 14:18 14:18 05:36 WBC 2.4 L Hgb 15.0 H MCHC 35 H RDW 13.0 L [place] % (Auto) Lymph # (Auto) Seg Neutrophils % Seg Neuts % (Manual) 72.0 H Monocytes % (Manual) 12.0 H Seg Neutrophils # Man 1.7 L Lymphocytes # (Manual) 0.4 L D-Dimer Sodium Potassium Chloride Carbon Dioxide BUN Creatinine Glucose 120 H POC Glucose Hemoglobin A1c Ferritin 767.8 H Lactate Dehydrogenase 373 H C-Reactive Protein 6.20 H Total Protein Albumin Coronavirus (PCR) 12/07/20 12/07/20 12/07/20 05:36 05:36 10:48 WBC Hgb MCHC RDW [place] % (Auto) Lymph # (Auto) Seg Neutrophils % Seg Neuts % (Manual) Monocytes % (Manual) Seg Neutrophils # Man Lymphocytes # (Manual) D-Dimer Sodium Potassium 3.0 L Chloride 93.2 L Carbon Dioxide 31 H D BUN Creatinine 0.5 L Glucose 130 H POC Glucose 137 H Hemoglobin A1c 6.1 H Ferritin Lactate Dehydrogenase C-Reactive Protein Total Protein 8.5 H Albumin Coronavirus (PCR) 12/07/20 12/07/20 12/07/20 15:08 18:11 21:13 WBC Hgb MCHC RDW [place] % (Auto) Lymph # (Auto) Seg Neutrophils % Seg Neuts % (Manual) Monocytes % (Manual) Seg Neutrophils # Man Lymphocytes # (Manual) D-Dimer Sodium Potassium 3.4 L Chloride 95.6 L Carbon Dioxide BUN Creatinine Glucose 145 H POC Glucose 143 H 120 H Hemoglobin A1c Ferritin Lactate Dehydrogenase C-Reactive Protein Total Protein 8.3 H Albumin Coronavirus (PCR) 12/07/20 12/08/20 12/08/20 Unknown 06:49 16:55 WBC Hgb MCHC RDW [place] % (Auto) Lymph # (Auto) Seg Neutrophils % Seg Neuts % (Manual) Monocytes % (Manual) Seg Neutrophils # Man Lymphocytes # (Manual) D-Dimer Sodium Potassium 3.3 L Chloride Carbon Dioxide BUN 18 H Creatinine Glucose 102 H POC Glucose 146 H Hemoglobin A1c Ferritin Lactate Dehydrogenase C-Reactive Protein Total Protein Albumin Coronavirus (PCR) Positive A 12/08/20 12/09/20 12/09/20 20:49 04:22 11:29 WBC Hgb MCHC RDW [place] % (Auto) Lymph # (Auto) Seg Neutrophils % Seg Neuts % (Manual) Monocytes % (Manual) Seg Neutrophils # Man Lymphocytes # (Manual) D-Dimer Sodium Potassium 3.5 L Chloride Carbon Dioxide BUN Creatinine 0.5 L Glucose 103 H POC Glucose 127 H 124 H Hemoglobin A1c Ferritin Lactate Dehydrogenase C-Reactive Protein Total Protein Albumin 3.7 L Coronavirus (PCR) 12/09/20 12/10/20 12/10/20 22:27 04:05 10:28 WBC Hgb MCHC RDW [place] % (Auto) Lymph # (Auto) Seg Neutrophils % Seg Neuts % (Manual) Monocytes % (Manual) Seg Neutrophils # Man Lymphocytes # (Manual) D-Dimer Sodium 136 L Potassium 3.4 L Chloride Carbon Dioxide BUN 18 H Creatinine 0.5 L Glucose 118 H POC Glucose 137 H 123 H Hemoglobin A1c Ferritin Lactate Dehydrogenase C-Reactive Protein Total Protein Albumin 3.7 L Coronavirus (PCR) 12/10/20 12/11/20 12/11/20 16:06 07:48 08:59 WBC Hgb MCHC RDW [place] % (Auto) Lymph # (Auto) Seg Neutrophils % Seg Neuts % (Manual) Monocytes % (Manual) Seg Neutrophils # Man Lymphocytes # (Manual) D-Dimer 333.65 H Sodium Potassium Chloride Carbon Dioxide BUN Creatinine Glucose POC Glucose 148 H 144 H Hemoglobin A1c Ferritin Lactate Dehydrogenase C-Reactive Protein Total Protein Albumin Coronavirus (PCR) 12/11/20 12/11/20 08:59 08:59 WBC Hgb MCHC RDW [place] % (Auto) Lymph # (Auto) Seg Neutrophils % Seg Neuts % (Manual) Monocytes % (Manual) Seg Neutrophils # Man Lymphocytes # (Manual) D-Dimer Sodium Potassium Chloride Carbon Dioxide BUN Creatinine Glucose POC Glucose Hemoglobin A1c Ferritin 671.1 H Lactate Dehydrogenase 257 H C-Reactive Protein Total Protein Albumin Coronavirus (PCR)
[2020-12-11] MEDS: REMDESIVIR 100 MG in SODIUM CHLORIDE 0.9% 250ML 250 ML IV SCH (21:20)
[2020-12-11] MEDS: SODIUM CHLORIDE 0.9% 50 ML IVPB IV SCH (21:20)
[2020-12-12 05:24] LABS: Hematocrit 39.7 % (30.3-42.9); Hemoglobin 13.7 gm/dl (10.1-14.3); Mean Corpuscular HGB Conc 34 % (30-34); Mean Corpuscular Volume 92 fl (79-97); Platelet Count 381 K/mm3 (140-440); Red Blood Count 4.33 M/mm3 (3.65-5.03); Red Cell Distribution Width 12.8 % (13.2-15.2)
[2020-12-12 05:43] LABS: Alanine Aminotransferase 17 units/L (7-56); Albumin 3.5 g/dL (3.9-5); Blood Urea Nitrogen 16 mg/dL (7-17); Calcium 8.9 mg/dL (8.4-10.2); Hemolysis Index 2
[2020-12-12 05:46] LABS: BUN/Creatinine Ratio 32
[2020-12-12] MEDS: INSULIN LISPRO 100 UNIT/ML SUB-Q SCH ×2 (08:33→13:17)
--- NOTE | 2020-12-12 08:48 | Progress Note ---
Assessment and Plan 55 y/o female with acute respiratory failure secondary to COVID pneumonia. 12/12/20: Stable on 3 liters. Suggest walk test and discharge to home on steroids for 10 days total including what was given in house. Will sign off. 12/11/20: Hold on additional lasix dosing. Continue steroids and proning. Remdesivir. Guarded prognosis 12/10/20: Will give another dose of lasix today if IMS has not already done so. Agree with increase in steroids. Prone if possible. Guarded prognosis. 1. Suggest increasing steroids to BID if wanting to continue dex or changing to Solumedrol 125 mg IV q8 hours given increase in oxygen requirement 2. Recommend proning as tolerated during the day and sleep prone at night 3. Agree with Remdesivir therapy, defer to ID if candidate for actemra 4. Agree with lasix therapy and would recommend another dose for today. Guarded prognosis. Subjective Date of service: 12/12/20 Interval history: No acute events. Down to 3 liters. Good sats. Objective Vital Signs - 12hr 12/11/20 12/11/20 12/12/20 21:42 23:01 01:20 Temperature 97.7 F Pulse Rate 64 Respiratory 28 H Rate Blood Pressure 130/83 O2 Sat by Pulse 96 95 95 Oximetry 12/12/20 12/12/20 03:01 05:22 Temperature 98.1 F Pulse Rate 65 Respiratory 22 Rate Blood Pressure 140/85 O2 Sat by Pulse 92 90 Oximetry Constitutional: no acute distress CBC and BMP: 12/12/20 05:05 12/12/20 05:05 ABG, PT/INR, D-dimer: PT/INR, D-dimer D-Dimer 333.65 ng/mlDDU (0-234) H 12/11/20 08:59 Abnormal lab findings: Abnormal Labs 12/06/20 12/06/20 12/06/20 14:18 14:18 14:18 WBC 3.6 L Hgb MCHC 35 H RDW 13.0 L [place] % (Auto) 13.2 H Lymph # (Auto) 0.5 L Seg Neutrophils % 72.1 H Seg Neuts % (Manual) Monocytes % (Manual) Seg Neutrophils # Man Lymphocytes # (Manual) D-Dimer 343.36 H Sodium 134 L Potassium 3.1 L Chloride 92.6 L Carbon Dioxide BUN Creatinine 0.5 L Glucose 122 H POC Glucose Hemoglobin A1c Ferritin Lactate Dehydrogenase C-Reactive Protein Total Protein Albumin Coronavirus (PCR) 12/06/20 12/06/20 12/07/20 14:18 14:18 05:36 WBC 2.4 L Hgb 15.0 H MCHC 35 H RDW 13.0 L [place] % (Auto) Lymph # (Auto) Seg Neutrophils % Seg Neuts % (Manual) 72.0 H Monocytes % (Manual) 12.0 H Seg Neutrophils # Man 1.7 L Lymphocytes # (Manual) 0.4 L D-Dimer Sodium Potassium Chloride Carbon Dioxide BUN Creatinine Glucose 120 H POC Glucose Hemoglobin A1c Ferritin 767.8 H Lactate Dehydrogenase 373 H C-Reactive Protein 6.20 H Total Protein Albumin Coronavirus (PCR) 12/07/20 12/07/20 12/07/20 05:36 05:36 10:48 WBC Hgb MCHC RDW [place] % (Auto) Lymph # (Auto) Seg Neutrophils % Seg Neuts % (Manual) Monocytes % (Manual) Seg Neutrophils # Man Lymphocytes # (Manual) D-Dimer Sodium Potassium 3.0 L Chloride 93.2 L Carbon Dioxide 31 H D BUN Creatinine 0.5 L Glucose 130 H POC Glucose 137 H Hemoglobin A1c 6.1 H Ferritin Lactate Dehydrogenase C-Reactive Protein Total Protein 8.5 H Albumin Coronavirus (PCR) 12/07/20 12/07/20 12/07/20 15:08 18:11 21:13 WBC Hgb MCHC RDW [place] % (Auto) Lymph # (Auto) Seg Neutrophils % Seg Neuts % (Manual) Monocytes % (Manual) Seg Neutrophils # Man Lymphocytes # (Manual) D-Dimer Sodium Potassium 3.4 L Chloride 95.6 L Carbon Dioxide BUN Creatinine Glucose 145 H POC Glucose 143 H 120 H Hemoglobin A1c Ferritin Lactate Dehydrogenase C-Reactive Protein Total Protein 8.3 H Albumin Coronavirus (PCR) 12/07/20 12/08/20 12/08/20 Unknown 06:49 16:55 WBC Hgb MCHC RDW [place] % (Auto) Lymph # (Auto) Seg Neutrophils % Seg Neuts % (Manual) Monocytes % (Manual) Seg Neutrophils # Man Lymphocytes # (Manual) D-Dimer Sodium Potassium 3.3 L Chloride Carbon Dioxide BUN 18 H Creatinine Glucose 102 H POC Glucose 146 H Hemoglobin A1c Ferritin Lactate Dehydrogenase C-Reactive Protein Total Protein Albumin Coronavirus (PCR) Positive A 12/08/20 12/09/20 12/09/20 20:49 04:22 11:29 WBC Hgb MCHC RDW [place] % (Auto) Lymph # (Auto) Seg Neutrophils % Seg Neuts % (Manual) Monocytes % (Manual) Seg Neutrophils # Man Lymphocytes # (Manual) D-Dimer Sodium Potassium 3.5 L Chloride Carbon Dioxide BUN Creatinine 0.5 L Glucose 103 H POC Glucose 127 H 124 H Hemoglobin A1c Ferritin Lactate Dehydrogenase C-Reactive Protein Total Protein Albumin 3.7 L Coronavirus (PCR) 12/09/20 12/10/20 12/10/20 22:27 04:05 10:28 WBC Hgb MCHC RDW [place] % (Auto) Lymph # (Auto) Seg Neutrophils % Seg Neuts % (Manual) Monocytes % (Manual) Seg Neutrophils # Man Lymphocytes # (Manual) D-Dimer Sodium 136 L Potassium 3.4 L Chloride Carbon Dioxide BUN 18 H Creatinine 0.5 L Glucose 118 H POC Glucose 137 H 123 H Hemoglobin A1c Ferritin Lactate Dehydrogenase C-Reactive Protein Total Protein Albumin 3.7 L Coronavirus (PCR) 12/10/20 12/11/20 12/11/20 16:06 07:48 08:59 WBC Hgb MCHC RDW [place] % (Auto) Lymph # (Auto) Seg Neutrophils % Seg Neuts % (Manual) Monocytes % (Manual) Seg Neutrophils # Man Lymphocytes # (Manual) D-Dimer 333.65 H Sodium Potassium Chloride Carbon Dioxide BUN Creatinine Glucose POC Glucose 148 H 144 H Hemoglobin A1c Ferritin Lactate Dehydrogenase C-Reactive Protein Total Protein Albumin Coronavirus (PCR) 12/11/20 12/11/20 12/11/20 08:59 08:59 12:29 WBC Hgb MCHC RDW [place] % (Auto) Lymph # (Auto) Seg Neutrophils % Seg Neuts % (Manual) Monocytes % (Manual) Seg Neutrophils # Man Lymphocytes # (Manual) D-Dimer Sodium Potassium Chloride Carbon Dioxide BUN Creatinine Glucose POC Glucose 109 H Hemoglobin A1c Ferritin 671.1 H Lactate Dehydrogenase 257 H C-Reactive Protein Total Protein Albumin Coronavirus (PCR) 12/11/20 12/11/20 12/12/20 17:54 21:13 05:05 WBC Hgb MCHC RDW 12.8 L [place] % (Auto) Lymph # (Auto) Seg Neutrophils % Seg Neuts % (Manual) Monocytes % (Manual) Seg Neutrophils # Man Lymphocytes # (Manual) D-Dimer Sodium Potassium Chloride Carbon Dioxide BUN Creatinine Glucose POC Glucose 128 H 118 H Hemoglobin A1c Ferritin Lactate Dehydrogenase C-Reactive Protein Total Protein Albumin Coronavirus (PCR) 12/12/20 12/12/20 05:05 07:41 WBC Hgb MCHC RDW [place] % (Auto) Lymph # (Auto) Seg Neutrophils % Seg Neuts % (Manual) Monocytes % (Manual) Seg Neutrophils # Man Lymphocytes # (Manual) D-Dimer Sodium Potassium Chloride Carbon Dioxide BUN Creatinine 0.5 L Glucose 136 H POC Glucose 109 H Hemoglobin A1c Ferritin Lactate Dehydrogenase C-Reactive Protein Total Protein Albumin 3.5 L Coronavirus (PCR)
[2020-12-12] MEDS: FAMOTIDINE 20 MG TAB PO SCH (09:11)
[2020-12-12] MEDS: ENOXAPARIN 40 MG/0.4 ML INJ SUB-Q SCH (09:11)
--- NOTE | 2020-12-12 09:54 | Discharge Summary ---
Providers - Providers Date of Admission: 12/06/20 15:25 Attending physician: LUCÍA COLLINS MD 12/06/20 17:13 Consult to Physician [CONS] Routine Comment: Consulting Provider: MARTHA RUDD Physician Instructions: Reason For Exam: Bilateral pneumonia 12/08/20 11:09 Consult to Physician [CONS] Routine Comment: Consulting Provider: KYLIE MELENDREZ Physician Instructions: Reason For Exam: covid,hypoxia Primary care physician: [employer] Hospitalization Reason for admission: SHORTNESS OF BREATH Condition: Fair Hospital course: 55-year-old female with history of hypertension, borderline diabetes and hyperlipidemia comes in with fever chills and cough for 1 week and difficulty breathing. Patient received 1 dose of Covid vaccine on November 27. Worsening shortness of breath over the last 1 week[place] Exposure to Covid virus present. Also patient has loss of taste and smell. For the last 7 days. (1) Acute respiratory failure with hypoxia Current Visit: Yes Status: Acute Plan to address problem: Continue oxygen supplementation and keep oxygen saturation levels above 92 Possible Covid pneumonia IV Decadron initiated Respiratory assessment and treatment ID consult (2) SIRS (systemic inflammatory response syndrome) Current Visit: Yes Status: Acute Plan to address problem: All inflammatory markers are elevated including D-dimer which is 343 and CRP is 6.2 and ferritin is 767 consistent with systemic inflammatory response syndrome. (3) Multifocal pneumonia Current Visit: Yes Status: Acute Plan to address problem: Patient initiated on IV antibiotics including ceftriaxone and Zithromax for p ossible community-acquired pneumonia Procalcitonin is normal We will defer to ID regarding discontinuing antibiotics (4) Pneumonia due to COVID-19 virus Current Visit: Yes Status: Acute Plan to address problem: Patient initiated on IV Decadron Will defer to ID regarding remdesivir Coronavirus PCR pending (5) Hypokalemia Current Visit: Yes Status: Acute Plan to address problem: Supplemented (6) Hyponatremia Current Visit: Yes Status: Acute Plan to address problem: IV fluids in the form of normal saline for 12 hours Recheck sodium level (7) Borderline diabetes Current Visit: Yes Status: Chronic Plan to address problem: Check hemoglobin A1c and coverage Initiate Metformin if necessary (8) Hypertension Current Visit: Yes Status: Chronic Qualifiers: Hypertension type: primary hypertension Qualified Code(s): I10 - Essential (primary) hypertension Plan to address problem: Continue antihypertensives and adjust medications 12/07 -Patient is on 3 L of oxygen, Covid test is pending. Patient is on dexamethasone, will add remdesivir once we get the Covid test result positive. Procalcitonin level is normal and I discontinued antibiotics. Hypokalemia repleted according to electrolyte replacement protocol. Will monitor blood pressure. 12/08 -Patient is on 10 L of oxygen, wean off oxygen as tolerated -Covid test was positive and started on remdesivir and Decadron. ID is following. Will consult pulmonary. -Blood sugars in target, continue sliding scale insulin 12/09 -Patient was on 10 L of high flow oxygen, wean off oxygen as tolerated -Continue with remdesivir and Decadron, not a candidate for acterma -I gave her a dose of 40 mg of IV furosemide -Prognosis guarded -Blood sugar and blood pressure; in target 12/10 -Patient's oxygen requirement went up to 15 L -Increase Decadron to twice daily dose, continue with remdesivir. ID saw the patient and said is not a candidate for Actemra -Continue with potassium replacement -Prognosis guarded 12/11: Considering some improvement, will wean to 3 liters of oxygen, Obtain Home O2 eval in am. Otherwise continue current management monitor electrolytes and replace as needed. Counseling provided to the patient. 12/12: Continue supportive care, Patient given extensive counselling considering new born at home. she had a walk test as documented below and oxygen prescribed. at rest 93% RA ambulating 87% 3lts NC 96% Disposition: 01 HOME / SELF CARE / HOMELESS Final Discharge Diagnosis (Prints w/discharge instructions): ACUTE HYPOXIC RESPIRATORY FAILURE SECONDARY TO COVID 19 Time spent for discharge: 35 MINS Core Measure Documentation - Palliative Care Palliative Care/ Comfort Measures: Not Applicable - Core Measures Any of the following diagnoses?: none Exam - Physical Exam Narrative exam: VITAL SIGNS: Reviewed. GENERAL: The patient appears normally developed, obese, dyspnea with exertion (improving). Vital signs as documented. HEAD: No signs of head trauma. EYES: Pupils are equal. Extraocular motions intact. EARS: Hearing grossly intact. MOUTH: Oropharynx is normal. NECK: No adenopathy, no JVD. CHEST: Chest with diminished breath sounds bilaterally. No wheezes, rales, or rhonchi. CARDIAC: Regular rate and rhythm. S1 and S2, without murmurs, gallops, or rubs. VASCULAR: No Edema. Peripheral pulses normal and equal in all extremities. ABDOMEN: Soft, non tender and non distended. No rebound or guarding, and no masses palpated. Bowel Sounds normal. MUSCULOSKELETAL: Good range of motion of all major joints. Extremities without clubbing, cyanosis or edema. NEUROLOGIC EXAM: Alert and oriented x 3 No focal sensory or strength deficits. Speech normal. Follows commands. PSYCHIATRIC: Mood normal. SKIN: detail exam as documented in skin assessment - Constitutional Vitals: Temp Pulse Resp BP Pulse Ox 98.1 F 65 22 140/85 90 12/12/20 05:22 12/12/20 05:22 12/12/20 05:22 12/12/20 05:12/12/20 05:22 Plan Activity: advance as tolerated, fall precautions Diet: low fat Special Instructions: record daily weights, record daily BP diary, home oxygen via (nasal cannula @ 3 liters per minute) Plan of Treatment: Please note that you are on ASA for the next 21 days, return to hospital if excessive bleeding or worsening shortness of breath. Please avoid the until cleared by your doctor. Continue social distancing and Isolation precautions along with mask Follow up with: PRIMARY CARE, [Primary Care Provider] - 7 Days KYLIE MELENDREZ MD [Staff Physician] - 7 Days Prescriptions: dexAMETHasone [Decadron] 8 mg PO BID #16 tablet Aspirin EC [Ecotrin] 325 mg PO QDAY #21 tablet. Famotidine [Pepcid] 20 mg PO BID #60 tablet Ascorbic Acid [Vitamin C] 1,000 mg PO DAILY #30 tablet Cholecalciferol (Vitamin D3) [Vitamin D3] 5,000 unit PO DAILY #30 tablet Zinc Sulfate 220 mg PO DAILY #30 capsule
[2020-12-12] MEDS ORDERED: DEXAMETHASONE 4 MG TAB PO SCH (10:00)
[2020-12-12 13:09] VITALS: BP 113/84
== END 2020-12-12 17:10 | disposition home or self-care (01) | DRG 177 ==
LOC: ED 12:53 → 3A 15:25
PROVIDERS: ADMIT Internal Medicine; ATTEND Internal Medicine
PROC: XW033E5 Introduction of Remdesivir Anti-infective into Peripheral Vein, Percutaneous Approach, New Technology Group 5 (ICD-10-PCS; principal; 2020-12-07)
DX: U07.1 COVID-19 (principal); J96.01 Acute respiratory failure with hypoxia; J12.82 Pneumonia due to coronavirus disease 2019; R65.10 Systemic inflammatory response syndrome (SIRS) of non-infectious origin without acute organ dysfunction; E87.1 Hypo-osmolality and hyponatremia; Z86.79 Personal history of other diseases of the circulatory system; I10 Essential (primary) hypertension; E11.9 Type 2 diabetes mellitus without complications; E78.5 Hyperlipidemia, unspecified; Z83.3 Family history of diabetes mellitus; Z82.49 Family history of ischemic heart disease and other diseases of the circulatory system
CPT/HCPCS: 36415; 71046; 80053; 82140; 82728; 82947; 82962; 83036; 83615; 84145; 84484; 85007; 85025; 85027; 85379; 86140; 87040; 94760; G0378; J0456; J0696; J1100; J1650; J1940; J7030; J7050; J8540; U0003